=== PATIENT | male | born 1945 | race Caucasian/White ===

== ENCOUNTER 2019-01-13 00:19 | Inpatient (IN) | payer MEDICARE ==
[~2019-01-13] VITALS: Ht 152.4 cm; Wt 66.3 kg
[2019-01-13] MEDS ORDERED: FLU VAX QS 2019-20 (36MOS+)/PF 0.5 ML SYRINGE. VAX IM ONE (02:00)
[2019-01-13 02:10] VITALS: BP 125/74
[2019-01-13] MEDS ORDERED: METHYL SALICYLATE/MENTHOL TOPICAL OINTMENT 57GM TUBE. TP PRN (02:15)
[2019-01-13] MEDS ORDERED: MAG HYDROX/AL HYDROX/SIMETH 30 ML ORAL.SUSP PO PRN (02:15)
[2019-01-13] MEDS ORDERED: ACETAMINOPHEN 325 MG TABLET PO PRN ×2 (02:15→02:45)
[2019-01-13] MEDS ORDERED: MAGNESIUM HYDROXIDE 2,400 MG/30 ML ORAL.SUSP. PO PRN (02:15)
[2019-01-13] MEDS ORDERED: traZODone 50 MG TABLET. PO PRN (02:30)
[2019-01-13] MEDS ORDERED: OMEG100021 PO (02:35)
[2019-01-13] MEDS ORDERED: MELA3TAB56 PO (02:35)
[2019-01-13] MEDS ORDERED: MULT1TAB52 PO (02:35)
[2019-01-13] MEDS ORDERED: CALC1TAB75 PO (02:35)
[2019-01-13] MEDS ORDERED: DONE10TA7 PO (02:35)
[2019-01-13] MEDS ORDERED: TRAZ-120 PO ×2 (02:35)
[2019-01-13] MEDS ORDERED: CLON0.5T4 PO (02:35)
[2019-01-13] MEDS ORDERED: ACET325T21 PO (02:35)
[2019-01-13] MEDS ORDERED: Magnesium Gluconate PO (02:35)
[2019-01-13] MEDS ORDERED: FERR325T14 PO (02:35)
[2019-01-13] MEDS ORDERED: VITA1TAB3 PO (02:35)
[2019-01-13] MEDS ORDERED: SIMV20TA18 PO (02:35)
[2019-01-13] MEDS ORDERED: APIX5TAB3 PO (02:35)
[2019-01-13] MEDS ORDERED: NIAC500T PO (02:35)
[2019-01-13] MEDS ORDERED: ALBU2.5V8 INH (02:35)
[2019-01-13] MEDS ORDERED: ALBUTEROL SULFATE 2.5 MG/3 ML NEBU. INH PRN (02:45)
--- NOTE | 2019-01-13 05:22 | EKG ---
[address] [address] Test Date: 2019-01-13 Test Time: 04:52:09 Pat Name: JAMEY GASCA Department: Room: [address] [place] [address] Gender: M Prop Sawyer: : 1945 Requested By: HANNAH WARD Order Number: [id number] Reading MD: Ganesh Trujillo MD Measurements Intervals [place] Rate: 72 P: 54 IA: 248 QRS: 64 QRSD: 92 T: 48 QT: 426 QTc: 468 Interpretive Statements SINUS RHYTHM PROLONGED IA INTERVAL Electronically Signed On 01-26-2019 12:46:11 CDT by Ganesh Trujillo MD
[2019-01-13 06:23] VITALS: BP 129/75
[2019-01-13 07:04] LABS: BASO % 1 % (0-3); EOS # 0.2 x10^3/uL (0.0-0.7); EOS % 4 % (0-3); HEMATOCRIT 34.8 % (39.0-53.0); HEMOGLOBIN 11.8 g/dL (13.0-17.5); LYMPH # 1.2 x10^3/uL (1.0-4.8); LYMPH % 28 % (24-48); MEAN CORPUSCULAR HEMOGLOBIN 32 pg (25-35); MEAN CORPUSCULAR HGB CONC 34 g/dL (31-37); MEAN CORPUSCULAR VOLUME 95 fL (79-100); MONO # 0.4 x10^3/uL (0.0-1.1); MONO % 9 % (0-9); NEUT # 2.4 x10^3uL (1.8-7.7); NEUT % 58 % (31-73); PLATELET COUNT 268 x10^3/uL (140-400); RED BLOOD COUNT 3.68 x10^6/uL (4.30-5.70); RED CELL DISTRIBUTION WIDTH 13.7 % (11.5-14.5); WHITE BLOOD COUNT 4.1 x10^3/uL (4.0-11.0)
[2019-01-13 07:23] LABS: BILIRUBIN,URINE NEG (NEG); CLARITY,URINE CLEAR; COLOR,URINE YELLOW; GLUCOSE,URINE NEG (NEG); NITRITE,URINE NEG (NEG); RBC,URINE 0 /HPF (0-2); UROBILINOGEN,URINE 0.2 mg/dL (0.2 mg/dL)
[2019-01-13 07:24] LABS: BACTERIA,URINE 0 /HPF (0-FEW)
[2019-01-13 07:27] LABS: ALBUMIN 3.4 g/dL (3.4-5.0); CALCIUM 9.2 mg/dL (8.5-10.1); CREATININE 1.6 mg/dL (0.7-1.3); GFR 42.6; MAGNESIUM 2.1 mg/dL (1.8-2.4); POTASSIUM 4.1 mmol/L (3.5-5.1); TOTAL BILIRUBIN 0.6 mg/dL (0.2-1.0); TOTAL PROTEIN 6.8 g/dL (6.4-8.2)
[2019-01-13] MEDS: APIXABAN 5 MG TABLET. PO SCH ×2 (12:14→20:14)
[2019-01-13] MEDS: MULTIVITAMIN with MINERAL TABLET. PO SCH (12:14)
[2019-01-13] MEDS: VITAMIN B COMPLEX CAPSULE. PO SCH (12:14)
[2019-01-13] MEDS: CALCIUM CARB/VIT D3 500/200 TABLET PO SCH (12:14)
[2019-01-13] MEDS: clonazePAM 0.5 MG TABLET PO SCH ×2 (12:14→20:15)
[2019-01-13] MEDS: OMEGA-3 FATTY ACIDS/FISH OIL 1,000 MG CAPSULE. PO SCH (12:14)
[2019-01-13] MEDS: FERROUS SULFATE 325 MG TABLET. PO SCH (12:15)
[2019-01-13 16:32] LABS: THYROID STIM HORMONE (TSH) 4.133 uIU/mL (0.358-3.740)
[2019-01-13 16:55] VITALS: BP 160/77
[2019-01-13 18:08] LABS: THYROXINE 4.9 ug/dL (4.5-12.0)
[2019-01-13] MEDS: NIACIN ER 500 MG TABLET.ER PO SCH (20:14)
[2019-01-13] MEDS: SIMVASTATIN 20 MG TABLET PO SCH (20:14)
[2019-01-13] MEDS: MELATONIN 3 MG TABLET PO SCH (20:15)
[2019-01-13] MEDS: DONEPEZIL HCL 10 MG TABLET PO SCH (20:15)
--- NOTE | 2019-01-13 22:03 | PDOC ---
Exam Note: Jose Note: Please also refer to the separate dictated note~for this date of service dictated separately. Discussed the patient with Nursing staff reviewed the chart.~Reviewed interim history and current functioning. Reviewed vital signs,~Labs/ Radiology~and current medications noted below. Continue current treatment with the changes noted in the dictated addendum note Assessment: Vital Signs/I&O: Vital Signs Date Time Temp Pulse Resp B/P (MAP) Pulse Ox O2 Delivery O2 Flow Rate FiO2 01/13/19 16:55 97.8 80 16 160/77 (104) 97 I & O 01/12/19 01/12/19 01/13/19 15:00 23:00 07:00 Intake Total 0 ml Balance 0 ml Labs: Laboratory Tests Test 01/13/19 05:45 01/13/19 06:35 Urine Collection Type Unknown Urine Color Yellow Urine Clarity Clear Urine pH 7.5 Urine Specific [place] 1.020 Urine Protein Neg (NEG-TRACE) Urine Glucose (UA) Neg mg/dL (NEG) Urine Ketones (Stick) Neg mg/dL (NEG) Urine Blood Neg (NEG) Urine Nitrite Neg (NEG) Urine Bilirubin Neg (NEG) Urine Urobilinogen Dipstick 0.2 mg/dL (0.2 mg/dL) Urine Leukocyte Esterase Neg (NEG) Urine RBC 0 /HPF (0-2) Urine WBC 1-4 /HPF (0-4) Urine Squamous Epithelial Cells None /LPF Urine Bacteria 0 /HPF (0-FEW) Urine Mucus Slight /LPF White Blood Count 4.1 x10^3/uL (4.0-11.0) Red Blood Count 3.68 x10^6/uL (4.30-5.70) L Hemoglobin 11.8 g/dL (13.0-17.5) L Hematocrit 34.8 % (39.0-53.0) L Mean Corpuscular Volume 95 fL (79-100) Mean Corpuscular Hemoglobin 32 pg (25-35) Mean Corpuscular Hemoglobin Concent 34 g/dL (31-37) Red Cell Distribution Width 13.7 % (11.5-14.5) Platelet Count 268 x10^3/uL (140-400) Neutrophils (%) (Auto) 58 % (31-73) Lymphocytes (%) (Auto) 28 % (24-48) Monocytes (%) (Auto) 9 % (0-9) Eosinophils (%) (Auto) 4 % (0-3) H Basophils (%) (Auto) 1 % (0-3) Neutrophils # (Auto) 2.4 x10^3uL (1.8-7.7) Lymphocytes # (Auto) 1.2 x10^3/uL (1.0-4.8) Monocytes # (Auto) 0.4 x10^3/uL (0.0-1.1) Eosinophils # (Auto) 0.2 x10^3/uL (0.0-0.7) Basophils # (Auto) 0.0 x10^3/uL (0.0-0.2) Sodium Level 142 mmol/L (136-145) Potassium Level 4.1 mmol/L (3.5-5.1) Chloride Level 107 mmol/L (98-107) Carbon Dioxide Level 28 mmol/L (21-32) Anion Gap 7 (6-14) Blood Urea Nitrogen 29 mg/dL (8-26) H Creatinine 1.6 mg/dL (0.7-1.3) H Estimated GFR (Cockcroft-Gault) 42.6 BUN/Creatinine Ratio 18 (6-20) Glucose Level 85 mg/dL (70-99) Calcium Level 9.2 mg/dL (8.5-10.1) Magnesium Level 2.1 mg/dL (1.8-2.4) Iron Level 79 ug/dL (65-175) Total Iron Binding Capacity 253 ug/dL (250-450) Iron Saturation 31 % (15-34) Total Bilirubin 0.6 mg/dL (0.2-1.0) Aspartate Amino Transferase (AST) 49 U/L (15-37) H Alanine Aminotransferase (ALT) 29 U/L (16-63) Alkaline Phosphatase 57 U/L (46-116) Total Protein 6.8 g/dL (6.4-8.2) Albumin 3.4 g/dL (3.4-5.0) Albumin/Globulin Ratio 1.0 (1.0-1.7) Triglycerides Level 64 mg/dL (0-150) Cholesterol Level 166 mg/dL (0-200) LDL Cholesterol, Calculated 110 mg/dL (0-100) H VLDL Cholesterol, Calculated 12 mg/dL (0-40) Non-HDL Cholesterol Calculated 122 mg/dL (0-129) HDL Cholesterol 44 mg/dL (40-60) Cholesterol/HDL Ratio 3.0 25-Hydroxy Vitamin D Total 53.7 ng/mL (30-100) Thyroid Stimulating Hormone (TSH) 4.133 uIU/mL (0.358-3.740) Thyroxine (T4) 4.9 ug/dL (4.5-12.0) Total Triiodothyronine (TT3) 76 ng/dL (71-180) Treponema pallidum Antibody Nonreactive (Nonreactive) Current Medications: Meds: Current Medications Medications (Trade) Dose Ordered Sig/Joe Route PRN Reason Start Time Stop Time Status Last Admin Dose Admin Clonazepam (KlonoPIN) 0.5 mg BID PO 01/13/19 09:00 01/13/19 20:15 Donepezil HCl (Aricept) 10 mg HS PO 01/13/19 21:00 01/13/19 20:15 Melatonin 3 mg HS PO 01/13/19 21:00 01/13/19 20:15 Apixaban (Eliquis) 5 mg BID PO 01/13/19 09:00 01/13/19 20:15 Ferrous Sulfate (Feosol) 325 mg DAILY PO 01/13/19 09:00 01/13/19 12:15 Niacin (Slo-Niacin) 500 mg HS PO 01/13/19 21:00 01/13/19 20:15 Simvastatin (Zocor) 20 mg HS PO 01/13/19 21:00 01/13/19 20:15 Calcium/Vitamin D (Oscal D 500mg/ 200uts) 1 tab DAILYWBKFT PO 01/13/19 08:00 01/13/19 12:15 Multivitamins/ Calcium (Thera-M Plus) 1 tab DAILY PO 01/13/19 09:00 01/13/19 12:15 Fish Oil (Fish Oil) 1,000 mg DAILY PO 01/13/19 09:00 01/13/19 12:15 Vitamin B Complex 1 cap DAILY PO 01/13/19 09:00 01/13/19 12:15 Olanzapine (ZyPREXA ZYDIS) 2.5 mg PRN Q2HR PRN PO PSYCHOSIS 01/13/19 20:45 01/13/19 21:05 I have reviewed the current psychotropics carefully including drug interactions. Risk benefit ratio favors no change other than as noted in my dictated progress note. Diagnosis: Problems: (1) Anxiety disorder (2) Dementia, vascular, with delusions (3) Dementia, vascular, with depression (4) Dementia in Alzheimer's disease with depression (5) Dementia in Alzheimer's disease with delusions (6) Impulse control disorder HANNAH WARD MD Jan 13, 2019 22:03
[2019-01-13] MEDS: traZODone 50 MG TABLET. PO PRN (23:02)
[2019-01-13 23:06] LABS: HEMOGLOBIN A1C 5.7 % (4.8-5.6)
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
[2019-01-14 06:50] VITALS: BP 121/55
[2019-01-14] MEDS: VITAMIN B COMPLEX CAPSULE. PO SCH (08:52)
[2019-01-14] MEDS: MULTIVITAMIN with MINERAL TABLET. PO SCH (08:52)
[2019-01-14] MEDS: OMEGA-3 FATTY ACIDS/FISH OIL 1,000 MG CAPSULE. PO SCH (08:52)
[2019-01-14] MEDS: CALCIUM CARB/VIT D3 500/200 TABLET PO SCH (08:53)
[2019-01-14] MEDS: FERROUS SULFATE 325 MG TABLET. PO SCH (08:53)
[2019-01-14] MEDS: APIXABAN 5 MG TABLET. PO SCH ×2 (08:53→21:08)
[2019-01-14] MEDS: clonazePAM 0.5 MG TABLET PO SCH ×2 (08:55→21:08)
[2019-01-14] MEDS ORDERED: FLU VAX QS 2019-20 (36MOS+)/PF 0.5 ML SYRINGE. VAX IM ONE (09:00)
[2019-01-14] MEDS ORDERED: risperiDONE 0.5 MG TABLET. PO ONE ×2 (10:30→18:45)
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
[2019-01-14] MEDS: LORazepam 0.5 MG TABLET PO PRN (16:06)
[2019-01-14] MEDS: risperiDONE 0.5 MG TABLET. PO SCH (18:33)
[2019-01-14] MEDS: SIMVASTATIN 20 MG TABLET PO SCH (21:08)
[2019-01-14] MEDS: traZODone 50 MG TABLET. PO PRN (21:08)
[2019-01-14] MEDS: DONEPEZIL HCL 10 MG TABLET PO SCH (21:08)
[2019-01-14] MEDS: DIVALPROEX ER 500 MG TAB.ER.24H PO SCH (21:08)
[2019-01-14] MEDS: NIACIN ER 500 MG TABLET.ER PO SCH (21:08)
[2019-01-14] MEDS: MELATONIN 3 MG TABLET PO SCH (21:08)
--- NOTE | 2019-01-14 21:46 | PDOC ---
Exam Note: Jose Note: Please also refer to the separate dictated note~for this date of service dictated separately.~Patient seen individually. Discussed the patient with Nursing staff reviewed the chart.~Reviewed interim history and current functioning. Reviewed vital signs,~Labs/ Radiology~and current medications noted below. Continue current treatment with the changes noted in the dictated addendum note Assessment: Vital Signs/I&O: Vital Signs Date Time Temp Pulse Resp B/P (MAP) Pulse Ox O2 Delivery O2 Flow Rate FiO2 01/14/19 06:50 97.7 55 18 121/55 (77) 97 I & O 01/13/19 01/13/19 01/14/19 15:00 23:00 07:00 Intake Total 240 ml 320 ml Balance 240 ml 320 ml Current Medications: Meds: Current Medications Medications (Trade) Dose Ordered Sig/Joe Route PRN Reason Start Time Stop Time Status Last Admin Dose Admin Risperidone (RisperDAL) 0.5 mg 1X ONCE PO 01/14/19 10:30 01/14/19 10:31 DC 01/14/19 10:32 Lorazepam (Ativan) 0.5 mg PRN Q2HR PRN PO ANXIETY / AGITATION 01/14/19 10:30 01/14/19 16:06 Divalproex Sodium (Depakote Er) 500 mg QHS PO 01/14/19 21:00 01/14/19 21:08 Risperidone (RisperDAL) 0.5 mg 1X ONCE PO 01/14/19 18:45 01/14/19 18:46 DC 01/14/19 18:36 I have reviewed the current psychotropics carefully including drug interactions. Risk benefit ratio favors no change other than as noted in my dictated progress note. Diagnosis: Problems: (1) Anxiety disorder (2) Dementia, vascular, with delusions (3) Dementia, vascular, with depression (4) Dementia in Alzheimer's disease with depression (5) Dementia in Alzheimer's disease with delusions (6) Impulse control disorder HANNAH WARD MD Jan 14, 2019 21:46
[2019-01-15 06:32] VITALS: BP 122/68
[2019-01-15] MEDS: OMEGA-3 FATTY ACIDS/FISH OIL 1,000 MG CAPSULE. PO SCH (08:07)
[2019-01-15] MEDS: APIXABAN 5 MG TABLET. PO SCH ×2 (08:07→20:34)
[2019-01-15] MEDS: VITAMIN B COMPLEX CAPSULE. PO SCH (08:07)
[2019-01-15] MEDS: FERROUS SULFATE 325 MG TABLET. PO SCH (08:07)
[2019-01-15] MEDS: CALCIUM CARB/VIT D3 500/200 TABLET PO SCH (08:08)
[2019-01-15] MEDS: MULTIVITAMIN with MINERAL TABLET. PO SCH (08:08)
[2019-01-15] MEDS: clonazePAM 0.5 MG TABLET PO SCH ×2 (08:09→20:36)
[2019-01-15] MEDS ORDERED: FLU VAX QS 2019-20 (36MOS+)/PF 0.5 ML SYRINGE. VAX IM ONE (09:00)
[2019-01-15] MEDS: LORazepam 0.5 MG TABLET PO PRN ×2 (13:27→16:27)
[2019-01-15] MEDS: risperiDONE 0.5 MG TABLET. PO SCH (13:55)
[2019-01-15 15:42] VITALS: BP 143/79
[2019-01-15] MEDS: DIVALPROEX ER 500 MG TAB.ER.24H PO SCH (20:33)
[2019-01-15] MEDS: DONEPEZIL HCL 10 MG TABLET PO SCH (20:33)
[2019-01-15] MEDS: MELATONIN 3 MG TABLET PO SCH (20:33)
[2019-01-15] MEDS: NIACIN ER 500 MG TABLET.ER PO SCH (20:34)
[2019-01-15] MEDS: SIMVASTATIN 20 MG TABLET PO SCH (20:34)
[2019-01-15] MEDS: PRIMIDONE 50 MG TABLET PO SCH (20:36)
--- NOTE | 2019-01-15 21:53 | PDOC ---
Exam Note: Jose Note: Please also refer to the separate dictated note~for this date of service dictated separately.~Patient seen individually. Discussed the patient with Nursing staff reviewed the chart.~Reviewed interim history and current functioning. Reviewed vital signs,~Labs/ Radiology~and current medications noted below. Continue current treatment with the changes noted in the dictated addendum note Assessment: Vital Signs/I&O: Vital Signs Date Time Temp Pulse Resp B/P (MAP) Pulse Ox O2 Delivery O2 Flow Rate FiO2 01/15/19 15:42 98.4 98 20 143/79 (100) 97 I & O 01/14/19 01/14/19 01/15/19 15:00 23:00 07:00 Intake Total 840 ml 0 ml 240 ml Balance 840 ml 0 ml 240 ml Current Medications: Meds: Current Medications Medications (Trade) Dose Ordered Sig/Joe Route PRN Reason Start Time Stop Time Status Last Admin Dose Admin Primidone (Mysoline) 50 mg QHS PO 01/15/19 21:00 01/15/19 20:36 I have reviewed the current psychotropics carefully including drug interactions. Risk benefit ratio favors no change other than as noted in my dictated progress note. Diagnosis: Problems: (1) Anxiety disorder (2) Dementia, vascular, with delusions (3) Dementia, vascular, with depression (4) Dementia in Alzheimer's disease with depression (5) Dementia in Alzheimer's disease with delusions (6) Impulse control disorder HANNAH WARD MD Jan 15, 2019 21:53
[2019-01-16 05:09] VITALS: BP 122/73
[2019-01-16] MEDS: FERROUS SULFATE 325 MG TABLET. PO SCH (08:21)
[2019-01-16] MEDS: OMEGA-3 FATTY ACIDS/FISH OIL 1,000 MG CAPSULE. PO SCH (08:21)
[2019-01-16] MEDS: VITAMIN B COMPLEX CAPSULE. PO SCH (08:21)
[2019-01-16] MEDS: APIXABAN 5 MG TABLET. PO SCH ×2 (08:21→20:38)
[2019-01-16] MEDS: MULTIVITAMIN with MINERAL TABLET. PO SCH (08:21)
[2019-01-16] MEDS: CALCIUM CARB/VIT D3 500/200 TABLET PO SCH (08:21)
[2019-01-16] MEDS: clonazePAM 0.5 MG TABLET PO SCH ×2 (08:25→20:39)
[2019-01-16] MEDS ORDERED: FLU VAX QS 2019-20 (36MOS+)/PF 0.5 ML SYRINGE. VAX IM ONE (09:00)
[2019-01-16 16:27] VITALS: BP 138/73
[2019-01-16] MEDS: MELATONIN 3 MG TABLET PO SCH (20:38)
[2019-01-16] MEDS: risperiDONE 0.5 MG TABLET. PO SCH (20:38)
[2019-01-16] MEDS: SIMVASTATIN 20 MG TABLET PO SCH (20:38)
[2019-01-16] MEDS: PRIMIDONE 50 MG TABLET PO SCH (20:38)
[2019-01-16] MEDS: DIVALPROEX ER 500 MG TAB.ER.24H PO SCH (20:38)
[2019-01-16] MEDS: DONEPEZIL HCL 10 MG TABLET PO SCH (20:38)
[2019-01-16] MEDS: NIACIN ER 500 MG TABLET.ER PO SCH (20:39)
[2019-01-16] MEDS: PROPRANOLOL 10 MG TABLET. PO SCH (20:40)
--- NOTE | 2019-01-16 21:44 | PDOC ---
Exam Note: Jose Note: Please also refer to the separate dictated note~for this date of service dictated separately.~Patient seen individually. Discussed the patient with Nursing staff reviewed the chart.~Reviewed interim history and current functioning. Reviewed vital signs,~Labs/ Radiology~and current medications noted below. Continue current treatment with the changes noted in the dictated addendum note Assessment: Vital Signs/I&O: Vital Signs Date Time Temp Pulse Resp B/P (MAP) Pulse Ox O2 Delivery O2 Flow Rate FiO2 01/16/19 20:40 75 138/73 01/16/19 16:27 97.2 16 97 I & O 01/15/19 01/15/19 01/16/19 15:00 23:00 07:00 Intake Total 1080 ml 480 ml 420 ml Balance 1080 ml 480 ml 420 ml Current Medications: Meds: Current Medications Medications (Trade) Dose Ordered Sig/Joe Route PRN Reason Start Time Stop Time Status Last Admin Dose Admin Influenza Virus Vaccine Quadrival (Afluria Quad 2019-20 (3yr Up) Syringe) 0.5 ml ONCE ONCE VAX IM 01/16/19 09:00 01/16/19 09:01 DC 01/16/19 08:29 Propranolol HCl (Inderal) 20 mg BID PO 01/16/19 21:00 01/16/19 20:40 I have reviewed the current psychotropics carefully including drug interactions. Risk benefit ratio favors no change other than as noted in my dictated progress note. Diagnosis: Problems: (1) Anxiety disorder (2) Dementia, vascular, with delusions (3) Dementia, vascular, with depression (4) Dementia in Alzheimer's disease with depression (5) Dementia in Alzheimer's disease with delusions (6) Impulse control disorder HANNAH WARD MD Jan 16, 2019 21:44
[2019-01-16] MEDS: LORazepam 0.5 MG TABLET PO PRN ×2 (21:56→23:56)
[2019-01-16] MEDS: traZODone 50 MG TABLET. PO PRN (22:46)
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
--- NOTE | 2019-01-17 02:13 | PN ---
DATE: 01/14/2019 PSYCHIATRIC PROGRESS NOTE This late entry 01/14/2019 covers elements not covered in my initial note. SUBJECTIVE: I met with the patient in the evening at some length and previously talked to nursing staff several times earlier on account of his marked mood lability, psychosis, agitation. The patient slept 5 hours previous night. Per JONATHAN Rojas patient received Zyprexa at night and he was started on Risperdal given his significant psychotic symptoms. His visited at lunchtime and apparently after the visit, he was much worse, psychotic, labile. He then slept for a while until 03:30, pulled his mattress off the bed, was in the [place] to reduce stimuli, felt he was on an airplane, was constantly chiming and repeating left, right, left. He was actively hallucinating. He was making other statements "remember the code, remember the code." Ativan was given. CT and MRI head were reviewed by me and are noncontributory. He has had marked mood lability. By the time I met with him in the evening, he was lying on the floor of the [address] Hall[address], prostrate head down, chanting, intermittently hitting his feet into the floor and hands onto the floor, quite psychotic, agitated. Nursing staff are keeping a close watch on him. REVIEW OF SYSTEMS: No CV, , pulmonary, eye, ENT system symptoms on review. Reliability poor. MENTAL STATUS EXAM: Oriented to himself. Insight, judgment, recent memory is impaired. Language function intact. Attention span short. Mood and affect extremely labile, extremely psychotic. LABORATORY DATA: Reviewed. IMPRESSION: Psychotic disorder, unspecified; major neurocognitive disorder, Alzheimer, vascular with delusion, depression, bipolar disorder, mixed with psychotic features. Rest unchanged. Reviewed information of his past treatment at [facility]. When he was tapered off the Klonopin, placed on Cymbalta, then became quite manic, labile. PLAN: We will go ahead and gradually adjust the Risperdal and start Depakote ER 500 mg p.o. at bedtime. Check CBC, CMP, valproic acid level, ammonia level in 3 days. Risperdal is being initiated 0.5 mg at bedtime. We will increase to 1 mg a day fairly quickly depending on his response. Further changes as clinically indicated. MAN Byron WARD MD DR: Judi JOB#: [id number] / [id number]
[2019-01-17 05:16] VITALS: BP 123/69
[2019-01-17] MEDS: PROPRANOLOL 10 MG TABLET. PO SCH ×2 (08:06→22:05)
[2019-01-17] MEDS: CALCIUM CARB/VIT D3 500/200 TABLET PO SCH (08:06)
[2019-01-17] MEDS: FERROUS SULFATE 325 MG TABLET. PO SCH (08:06)
[2019-01-17] MEDS: MULTIVITAMIN with MINERAL TABLET. PO SCH (08:06)
[2019-01-17] MEDS: APIXABAN 5 MG TABLET. PO SCH ×2 (08:06→22:02)
[2019-01-17] MEDS: VITAMIN B COMPLEX CAPSULE. PO SCH (08:07)
[2019-01-17] MEDS: OMEGA-3 FATTY ACIDS/FISH OIL 1,000 MG CAPSULE. PO SCH (08:07)
[2019-01-17] MEDS: clonazePAM 0.5 MG TABLET PO SCH ×2 (08:09→22:04)
[2019-01-17 08:32] LABS: BASO % 1 % (0-3); EOS # 0.2 x10^3/uL (0.0-0.7); EOS % 5 % (0-3); HEMATOCRIT 36.4 % (39.0-53.0); HEMOGLOBIN 12.3 g/dL (13.0-17.5); LYMPH % 27 % (24-48); MEAN CORPUSCULAR HEMOGLOBIN 32 pg (25-35); MEAN CORPUSCULAR HGB CONC 34 g/dL (31-37); MEAN CORPUSCULAR VOLUME 95 fL (79-100); MONO # 0.4 x10^3/uL (0.0-1.1); MONO % 12 % (0-9); NEUT % 55 % (31-73); PLATELET COUNT 302 x10^3/uL (140-400); RED BLOOD COUNT 3.82 x10^6/uL (4.30-5.70); RED CELL DISTRIBUTION WIDTH 13.8 % (11.5-14.5); WHITE BLOOD COUNT 3.7 x10^3/uL (4.0-11.0)
[2019-01-17 08:41] LABS: ALBUMIN 3.5 g/dL (3.4-5.0); ALK PHOS 65 U/L (46-116); ALT (SGPT) 29 U/L (16-63); ANION GAP 8 (6-14); AST (SGOT) 34 U/L (15-37); BLOOD UREA NITROGEN 23 mg/dL (8-26); BUN/CREATININE RATIO 14 (6-20); CALCIUM 9.1 mg/dL (8.5-10.1); CARBON DIOXIDE 29 mmol/L (21-32); CHLORIDE 104 mmol/L (98-107); CREATININE 1.6 mg/dL (0.7-1.3); GFR 42.6; GLUCOSE 102 mg/dL (70-99); POTASSIUM 4.4 mmol/L (3.5-5.1); SODIUM 141 mmol/L (136-145); TOTAL BILIRUBIN 0.3 mg/dL (0.2-1.0); TOTAL PROTEIN 7.1 g/dL (6.4-8.2)
[2019-01-17 08:46] LABS: VAL ACID 54 mcg/mL (50-100)
[2019-01-17 15:32] VITALS: BP 121/68
[2019-01-17] MEDS: MELATONIN 3 MG TABLET PO SCH (22:02)
[2019-01-17] MEDS: DIVALPROEX ER 500 MG TAB.ER.24H PO SCH (22:02)
[2019-01-17] MEDS: SIMVASTATIN 20 MG TABLET PO SCH (22:02)
[2019-01-17] MEDS: risperiDONE 0.5 MG TABLET. PO SCH (22:02)
[2019-01-17] MEDS: NIACIN ER 500 MG TABLET.ER PO SCH (22:03)
[2019-01-17] MEDS: DONEPEZIL HCL 10 MG TABLET PO SCH (22:05)
[2019-01-17] MEDS: PRIMIDONE 50 MG TABLET PO SCH (22:07)
--- NOTE | 2019-01-17 22:17 | PDOC ---
Exam Note: Jose Note: Please also refer to the separate dictated note~for this date of service dictated separately.~Patient seen individually. Discussed the patient with Nursing staff reviewed the chart.~Reviewed interim history and current functioning. Reviewed vital signs,~Labs/ Radiology~and current medications noted below. Continue current treatment with the changes noted in the dictated addendum note Assessment: Vital Signs/I&O: Vital Signs Date Time Temp Pulse Resp B/P (MAP) Pulse Ox O2 Delivery O2 Flow Rate FiO2 01/17/19 22:05 66 127/70 01/17/19 15:32 97.6 16 98 I & O 01/16/19 01/16/19 01/17/19 15:00 23:00 07:00 Intake Total 960 ml 480 ml 360 ml Balance 960 ml 480 ml 360 ml Labs: Laboratory Tests Test 01/17/19 07:36 White Blood Count 3.7 x10^3/uL (4.0-11.0) L Red Blood Count 3.82 x10^6/uL (4.30-5.70) L Hemoglobin 12.3 g/dL (13.0-17.5) L Hematocrit 36.4 % (39.0-53.0) L Mean Corpuscular Volume 95 fL (79-100) Mean Corpuscular Hemoglobin 32 pg (25-35) Mean Corpuscular Hemoglobin Concent 34 g/dL (31-37) Red Cell Distribution Width 13.8 % (11.5-14.5) Platelet Count 302 x10^3/uL (140-400) Neutrophils (%) (Auto) 55 % (31-73) Lymphocytes (%) (Auto) 27 % (24-48) Monocytes (%) (Auto) 12 % (0-9) H Eosinophils (%) (Auto) 5 % (0-3) H Basophils (%) (Auto) 1 % (0-3) Neutrophils # (Auto) 2.0 x10^3uL (1.8-7.7) Lymphocytes # (Auto) 1.0 x10^3/uL (1.0-4.8) Monocytes # (Auto) 0.4 x10^3/uL (0.0-1.1) Eosinophils # (Auto) 0.2 x10^3/uL (0.0-0.7) Basophils # (Auto) 0.0 x10^3/uL (0.0-0.2) Sodium Level 141 mmol/L (136-145) Potassium Level 4.4 mmol/L (3.5-5.1) Chloride Level 104 mmol/L (98-107) Carbon Dioxide Level 29 mmol/L (21-32) Anion Gap 8 (6-14) Blood Urea Nitrogen 23 mg/dL (8-26) Creatinine 1.6 mg/dL (0.7-1.3) H Estimated GFR (Cockcroft-Gault) 42.6 BUN/Creatinine Ratio 14 (6-20) Glucose Level 102 mg/dL (70-99) H Calcium Level 9.1 mg/dL (8.5-10.1) Total Bilirubin 0.3 mg/dL (0.2-1.0) Aspartate Amino Transferase (AST) 34 U/L (15-37) Alanine Aminotransferase (ALT) 29 U/L (16-63) Alkaline Phosphatase 65 U/L (46-116) Ammonia < 10 mcmol/L (11-34) L Total Protein 7.1 g/dL (6.4-8.2) Albumin 3.5 g/dL (3.4-5.0) Albumin/Globulin Ratio 1.0 (1.0-1.7) Valproic Acid Level 54 mcg/mL (50-100) Valproic Acid Last Dose Date 01/16/19 Valproic Acid Last Dose Time 2100 Current Medications: I have reviewed the current psychotropics carefully including drug interactions. Risk benefit ratio favors no change other than as noted in my dictated progress note. Diagnosis: Problems: (1) Anxiety disorder (2) Dementia, vascular, with delusions (3) Dementia, vascular, with depression (4) Dementia in Alzheimer's disease with depression (5) Dementia in Alzheimer's disease with delusions (6) Impulse control disorder HANNAH WARD MD Jan 17, 2019 22:17
[2019-01-18 05:25] VITALS: BP 131/74
[2019-01-18] MEDS: CALCIUM CARB/VIT D3 500/200 TABLET PO SCH (09:15)
[2019-01-18] MEDS: OMEGA-3 FATTY ACIDS/FISH OIL 1,000 MG CAPSULE. PO SCH (09:16)
[2019-01-18] MEDS: APIXABAN 5 MG TABLET. PO SCH ×2 (09:16→20:12)
[2019-01-18] MEDS: FERROUS SULFATE 325 MG TABLET. PO SCH (09:16)
[2019-01-18] MEDS: VITAMIN B COMPLEX CAPSULE. PO SCH (09:16)
[2019-01-18] MEDS: MULTIVITAMIN with MINERAL TABLET. PO SCH (09:17)
[2019-01-18] MEDS: PROPRANOLOL 10 MG TABLET. PO SCH ×2 (09:17→20:11)
[2019-01-18] MEDS: clonazePAM 0.5 MG TABLET PO SCH ×2 (09:18→20:12)
[2019-01-18 16:06] VITALS: BP 150/76
[2019-01-18] MEDS: risperiDONE 0.5 MG TABLET. PO SCH (20:10)
[2019-01-18] MEDS: MELATONIN 3 MG TABLET PO SCH (20:11)
[2019-01-18] MEDS: DIVALPROEX ER 500 MG TAB.ER.24H PO SCH (20:11)
[2019-01-18] MEDS: NIACIN ER 500 MG TABLET.ER PO SCH (20:11)
[2019-01-18] MEDS: DONEPEZIL HCL 10 MG TABLET PO SCH (20:12)
[2019-01-18] MEDS: PRIMIDONE 50 MG TABLET PO SCH (20:12)
[2019-01-18] MEDS: SIMVASTATIN 20 MG TABLET PO SCH (20:12)
[2019-01-18] MEDS: traZODone 50 MG TABLET. PO SCH (20:17)
--- NOTE | 2019-01-18 21:31 | PDOC ---
Exam Note: Jose Note: Please also refer to the separate dictated note~for this date of service dictated separately.~Patient seen individually. Discussed the patient with Nursing staff reviewed the chart.~Reviewed interim history and current functioning. Reviewed vital signs,~Labs/ Radiology~and current medications noted below. Continue current treatment with the changes noted in the dictated addendum note Assessment: Vital Signs/I&O: Vital Signs Date Time Temp Pulse Resp B/P (MAP) Pulse Ox O2 Delivery O2 Flow Rate FiO2 01/18/19 20:11 65 150/76 01/18/19 16:06 97.3 20 97 01/18/19 05:25 Room Air I & O 01/17/19 01/17/19 01/18/19 15:00 23:00 07:00 Intake Total 600 ml 240 ml 240 ml Balance 600 ml 240 ml 240 ml Current Medications: Meds: Current Medications Medications (Trade) Dose Ordered Sig/Joe Route PRN Reason Start Time Stop Time Status Last Admin Dose Admin Trazodone HCl (Desyrel) 50 mg QHS PO 01/18/19 21:00 01/18/19 20:17 I have reviewed the current psychotropics carefully including drug interactions. Risk benefit ratio favors no change other than as noted in my dictated progress note. Diagnosis: Problems: (1) Anxiety disorder (2) Dementia, vascular, with delusions (3) Dementia, vascular, with depression (4) Dementia in Alzheimer's disease with depression (5) Dementia in Alzheimer's disease with delusions (6) Impulse control disorder HANNAH WARD MD Jan 18, 2019 21:31
--- NOTE | 2019-01-19 00:23 | PN ---
DATE: 01/16/2019 PSYCHIATRIC PROGRESS NOTE This late entry 01/16/2019 covers elements not covered in my initial note. SUBJECTIVE: I met with the patient evening of 01/16/2019. Per JONATHAN Cutler, the patient slept 4 hours previous night. Appetite has been fair. He has been attending groups, attended [email or web address], quite a change for him from the day before when he was extremely psychotic, disorganized, agitated, labile and previously the day before, tried to suffocate himself. He has been asking questions and painting. He was unaware of the year, but remembered the date, thought he was in [facility], takes his medications whole. REVIEW OF SYSTEMS: No CV, , pulmonary, eye system symptoms on review. MENTAL STATUS EXAM: The patient is oriented as above. Speech has some latency, coherent. Abstraction fair, computation impaired, language function intact, attention span short. Mood and affect less labile. He is still psychotic, but much improved. LABORATORY DATA: Reviewed. IMPRESSION: Probable bipolar disorder, mixed with psychotic features; psychotic disorder, unspecified; major neurocognitive disorder, early multifactorial with delusion. Rest unchanged. PLAN: Continue current psychotropics. Depakote is being adjusted. He is on Klonopin, Aricept, trazodone, Risperdal 0.5 mg at bedtime, Ativan p.r.n. MAN Byron WRAD MD DR: CARRIE/dariana JOB#: [id number] / [id number]
[2019-01-19 05:59] VITALS: BP 155/78
[2019-01-19] MEDS: MULTIVITAMIN with MINERAL TABLET. PO SCH (07:47)
[2019-01-19] MEDS: clonazePAM 0.5 MG TABLET PO SCH ×2 (07:47→19:45)
[2019-01-19] MEDS: APIXABAN 5 MG TABLET. PO SCH ×2 (07:47→19:45)
[2019-01-19] MEDS: FERROUS SULFATE 325 MG TABLET. PO SCH (07:47)
[2019-01-19] MEDS: OMEGA-3 FATTY ACIDS/FISH OIL 1,000 MG CAPSULE. PO SCH (07:47)
[2019-01-19] MEDS: CALCIUM CARB/VIT D3 500/200 TABLET PO SCH (07:47)
[2019-01-19] MEDS: VITAMIN B COMPLEX CAPSULE. PO SCH (07:47)
[2019-01-19] MEDS: PROPRANOLOL 10 MG TABLET. PO SCH ×2 (07:48→19:46)
--- NOTE | 2019-01-19 12:24 | PN ---
DATE: 01/17/2019 PSYCHIATRIC PROGRESS NOTE This late entry, 01/17/2019, covers elements not covered in my initial note. SUBJECTIVE: I met with the patient in the evening. The patient slept 2-1/4 hours previous night. Previous night, he was combative with staff, put himself on the floor, received p.r.n. Ativan, Zyprexa and trazodone. At 2:00 a.m., he had to be placed in the [place] Hall[place] to lower stimulation and then went back to bed. During the day on 01/17/2019, he is doing better, oriented to himself and situation. REVIEW OF SYSTEMS: Still complains of something wrong with his head, no CV, , pulmonary, eye, ENT system symptoms on review. MENTAL STATUS EXAM: The patient is oriented to himself and situation. Speech coherent, a little pressured at times. Abstraction fair, computation impaired, language function intact, attention span short. Mood and affect still remains labile. LABORATORY DATA: Reviewed. IMPRESSION: Unchanged from initial note. PLAN: Increase trazodone to 50 mg at bedtime schedule, may repeat x 1. Continue Aricept, Klonopin along with Zyprexa p.r.n., Risperdal and Ativan p.r.n., Depakote ER 500 mg at bedtime. Check labs level. Adjust as clinically indicated to reach therapeutic level. HANNAH WARD MD DR: CARRIE/dariana JOB#: [id number] / [id number]
[2019-01-19 16:01] VITALS: BP 121/50
[2019-01-19] MEDS: DONEPEZIL HCL 10 MG TABLET PO SCH (19:45)
[2019-01-19] MEDS: NIACIN ER 500 MG TABLET.ER PO SCH (19:45)
[2019-01-19] MEDS: MELATONIN 3 MG TABLET PO SCH (19:45)
[2019-01-19] MEDS: traZODone 50 MG TABLET. PO SCH (19:45)
[2019-01-19] MEDS: PRIMIDONE 50 MG TABLET PO SCH (19:45)
[2019-01-19] MEDS: DIVALPROEX ER 500 MG TAB.ER.24H PO SCH (19:45)
[2019-01-19] MEDS: SIMVASTATIN 20 MG TABLET PO SCH (19:45)
[2019-01-19] MEDS: risperiDONE 0.5 MG TABLET. PO SCH (19:50)
--- NOTE | 2019-01-19 21:41 | PDOC ---
Exam Note: Jose Note: Please also refer to the separate dictated note~for this date of service dictated separately.~Patient seen individually. Discussed the patient with Nursing staff reviewed the chart.~Reviewed interim history and current functioning. Reviewed vital signs,~Labs/ Radiology~and current medications noted below. Continue current treatment with the changes noted in the dictated addendum note Assessment: Vital Signs/I&O: Vital Signs Date Time Temp Pulse Resp B/P (MAP) Pulse Ox O2 Delivery O2 Flow Rate FiO2 01/19/19 19:46 69 121/50 01/19/19 16:01 97.4 20 98 01/19/19 05:59 Room Air I & O 01/18/19 01/18/19 01/19/19 15:00 23:00 07:00 Intake Total 960 ml 360 ml Balance 960 ml 360 ml Current Medications: Meds: Current Medications Medications (Trade) Dose Ordered Sig/Joe Route PRN Reason Start Time Stop Time Status Last Admin Dose Admin Risperidone (RisperDAL) 0.75 mg QHS PO 01/19/19 21:00 01/19/19 19:50 I have reviewed the current psychotropics carefully including drug interactions. Risk benefit ratio favors no change other than as noted in my dictated progress note. Diagnosis: Problems: (1) Anxiety disorder (2) Dementia, vascular, with delusions (3) Dementia, vascular, with depression (4) Dementia in Alzheimer's disease with depression (5) Dementia in Alzheimer's disease with delusions (6) Impulse control disorder HANNAH WARD MD Jan 19, 2019 21:41
--- NOTE | 2019-01-20 00:34 | PN ---
DATE: 01/18/2019 PSYCHIATRIC PROGRESS NOTE This late entry, 01/18/2019, covers elements not covered in my initial note. SUBJECTIVE: I met with the patient in the evening. The patient slept 6 hours previous night. He has been confused, somewhat calmer. He had valproic acid level therapeutic at 54. AST, ALT unremarkable. REVIEW OF SYSTEMS: No CV, , pulmonary, eye, ENT system symptoms on review. Reliability varies. MENTAL STATUS EXAM: Oriented to himself and situation. Speech is coherent, a little pressured at times. Abstraction fair, computation impaired, language function intact, attention span short. Mood and affect still somewhat labile. LABORATORY DATA: Reviewed. IMPRESSION: Bipolar disorder, mixed with psychotic features; major neurocognitive disorder, multifactorial with delusion, depression, behavioral disturbance, psychotic disorder, unspecified. Rest unchanged. PLAN: Continue Depakote at current dosage, level therapeutic, increase Risperdal to 0.75 mg at bedtime. Rest unchanged for now. MAN Byron WARD MD DR: CARRIE/dariana JOB#: [id number] / [id number]
[2019-01-20 05:53] VITALS: BP 129/74
[2019-01-20] MEDS: MULTIVITAMIN with MINERAL TABLET. PO SCH (08:15)
[2019-01-20] MEDS: CALCIUM CARB/VIT D3 500/200 TABLET PO SCH (08:15)
[2019-01-20] MEDS: FERROUS SULFATE 325 MG TABLET. PO SCH (08:15)
[2019-01-20] MEDS: OMEGA-3 FATTY ACIDS/FISH OIL 1,000 MG CAPSULE. PO SCH (08:15)
[2019-01-20] MEDS: clonazePAM 0.5 MG TABLET PO SCH ×2 (08:15→19:50)
[2019-01-20] MEDS: APIXABAN 5 MG TABLET. PO SCH ×2 (08:15→19:41)
[2019-01-20] MEDS: VITAMIN B COMPLEX CAPSULE. PO SCH (08:16)
[2019-01-20] MEDS: PROPRANOLOL 10 MG TABLET. PO SCH ×2 (08:16→19:44)
[2019-01-20 16:30] VITALS: BP 111/71
[2019-01-20] MEDS: NIACIN ER 500 MG TABLET.ER PO SCH (19:40)
[2019-01-20] MEDS: MELATONIN 3 MG TABLET PO SCH (19:41)
[2019-01-20] MEDS: PRIMIDONE 50 MG TABLET PO SCH (19:42)
[2019-01-20] MEDS: traZODone 50 MG TABLET. PO SCH (19:42)
[2019-01-20] MEDS: risperiDONE 0.5 MG TABLET. PO SCH (19:43)
[2019-01-20] MEDS: SIMVASTATIN 20 MG TABLET PO SCH (19:44)
[2019-01-20] MEDS: DONEPEZIL HCL 10 MG TABLET PO SCH (19:50)
[2019-01-20] MEDS: DIVALPROEX ER 500 MG TAB.ER.24H PO SCH (19:50)
[2019-01-20] MEDS: BENZTROPINE MESYLATE 0.5 MG TABLET PO SCH (19:51)
--- NOTE | 2019-01-20 22:14 | PDOC ---
Exam Note: Jose Note: Please also refer to the separate dictated note~for this date of service dictated separately.~Patient seen individually. Discussed the patient with Nursing staff reviewed the chart.~Reviewed interim history and current functioning. Reviewed vital signs,~Labs/ Radiology~and current medications noted below. Continue current treatment with the changes noted in the dictated addendum note Assessment: Vital Signs/I&O: Vital Signs Date Time Temp Pulse Resp B/P (MAP) Pulse Ox O2 Delivery O2 Flow Rate FiO2 01/20/19 19:44 76 111/71 01/20/19 16:30 98.0 20 96 01/19/19 05:59 Room Air I & O 01/19/19 01/19/19 01/20/19 15:00 23:00 07:00 Intake Total 840 ml 240 ml 120 ml Balance 840 ml 240 ml 120 ml Current Medications: Meds: Current Medications Medications (Trade) Dose Ordered Sig/Joe Route PRN Reason Start Time Stop Time Status Last Admin Dose Admin Benztropine Mesylate (Cogentin) 0.5 mg HS PO 01/20/19 21:00 01/20/19 19:51 I have reviewed the current psychotropics carefully including drug interactions. Risk benefit ratio favors no change other than as noted in my dictated progress note. Diagnosis: Problems: (1) Anxiety disorder (2) Dementia, vascular, with delusions (3) Dementia, vascular, with depression (4) Dementia in Alzheimer's disease with depression (5) Dementia in Alzheimer's disease with delusions (6) Impulse control disorder HANNAH WARD MD Jan 20, 2019 22:14
[2019-01-21 05:52] VITALS: BP 134/76
--- NOTE | 2019-01-21 06:44 | PN ---
DATE: 01/19/2019 PSYCHIATRIC PROGRESS NOTE This late entry 01/19/2019 covers elements not covered in my initial note. SUBJECTIVE: I met with the patient evening of 01/19/2019. The patient slept 6-3/4 hours previous night per JONATHAN Cutler. He has had some drooling in the morning but later in the day no drooling was noted. He is compliant with his medications, less paranoid. No behaviors noted during the day. REVIEW OF SYSTEMS: Positive for some anxiety and some racing thoughts, but he feels it is better. No CV, , pulmonary, eye system symptoms on review. MENTAL STATUS EXAM: Oriented to himself, situation. Speech is coherent, abstraction fair, computation impaired, language function intact, attention span short. Mood and affect remain somewhat anxious but better than before. LABORATORY DATA: Reviewed. IMPRESSION: Unchanged from initial note. PLAN: No change from initial note. Depakote is being adjusted. Valproic acid level is therapeutic at 54. Risperdal was increased to 0.75 mg at bedtime. Maintain the rest unchanged. MAN Byron WARD MD DR: CARRIE/dariana JOB#: [id number] / [id number]
[2019-01-21] MEDS: APIXABAN 5 MG TABLET. PO SCH ×2 (08:47→20:27)
[2019-01-21] MEDS: FERROUS SULFATE 325 MG TABLET. PO SCH (08:47)
[2019-01-21] MEDS: OMEGA-3 FATTY ACIDS/FISH OIL 1,000 MG CAPSULE. PO SCH (08:47)
[2019-01-21] MEDS: VITAMIN B COMPLEX CAPSULE. PO SCH (08:47)
[2019-01-21] MEDS: CALCIUM CARB/VIT D3 500/200 TABLET PO SCH (08:47)
[2019-01-21] MEDS: PROPRANOLOL 10 MG TABLET. PO SCH ×2 (08:49→20:28)
[2019-01-21] MEDS: MULTIVITAMIN with MINERAL TABLET. PO SCH (08:49)
[2019-01-21] MEDS: clonazePAM 0.5 MG TABLET PO SCH ×2 (08:51→20:28)
[2019-01-21 16:05] VITALS: BP 133/80
[2019-01-21] MEDS: SIMVASTATIN 20 MG TABLET PO SCH (20:27)
[2019-01-21] MEDS: MELATONIN 3 MG TABLET PO SCH (20:27)
[2019-01-21] MEDS: BENZTROPINE MESYLATE 0.5 MG TABLET PO SCH (20:28)
[2019-01-21] MEDS: PRIMIDONE 50 MG TABLET PO SCH (20:28)
[2019-01-21] MEDS: DONEPEZIL HCL 10 MG TABLET PO SCH (20:28)
[2019-01-21] MEDS: risperiDONE 1 MG TABLET. PO SCH (20:28)
[2019-01-21] MEDS: traZODone 50 MG TABLET. PO SCH (20:29)
[2019-01-21] MEDS: DIVALPROEX ER 500 MG TAB.ER.24H PO SCH (20:29)
[2019-01-21] MEDS: NIACIN ER 500 MG TABLET.ER PO SCH (20:29)
--- NOTE | 2019-01-21 21:28 | PDOC ---
Exam Note: Jose Note: Please also refer to the separate dictated note~for this date of service dictated separately.~Patient seen individually. Discussed the patient with Nursing staff reviewed the chart.~Reviewed interim history and current functioning. Reviewed vital signs,~Labs/ Radiology~and current medications noted below. Continue current treatment with the changes noted in the dictated addendum note Assessment: Vital Signs/I&O: Vital Signs Date Time Temp Pulse Resp B/P (MAP) Pulse Ox O2 Delivery O2 Flow Rate FiO2 01/21/19 20:28 67 145/83 01/21/19 16:05 98.3 16 97 01/19/19 05:59 Room Air I & O 01/20/19 01/20/19 01/21/19 14:59 22:59 06:59 Intake Total 600 ml 240 ml 120 ml Balance 600 ml 240 ml 120 ml Current Medications: Meds: Current Medications Medications (Trade) Dose Ordered Sig/Joe Route PRN Reason Start Time Stop Time Status Last Admin Dose Admin Risperidone (RisperDAL) 1 mg QHS PO 01/21/19 21:00 01/21/19 20:28 I have reviewed the current psychotropics carefully including drug interactions. Risk benefit ratio favors no change other than as noted in my dictated progress note. Diagnosis: Problems: (1) Anxiety disorder (2) Dementia, vascular, with delusions (3) Dementia, vascular, with depression (4) Dementia in Alzheimer's disease with depression (5) Dementia in Alzheimer's disease with delusions (6) Impulse control disorder HANNAH WARD MD Jan 21, 2019 21:28
[2019-01-22 05:42] VITALS: BP 146/76
--- NOTE | 2019-01-22 06:23 | PN ---
DATE: 01/20/2019 PSYCHIATRIC PROGRESS NOTE This late entry, 01/20, covers elements not covered in my initial note. SUBJECTIVE: I met with the patient evening of 01/20. Overall, per nursing report by JONATHAN Rubalcava, the patient has been drooling, at times was crawling on the floor, oriented to his name and birthday. Thought it was [birth year]18[birth year]2019 and that he was at [facility] in [place]. He does have some extrapyramidal symptoms and we will start Cogentin 0.5 mg half a tablet at bedtime. REVIEW OF SYSTEMS: No CV, , pulmonary, eye system symptoms on review. MENTAL STATUS EXAM: Oriented to himself and situation. Speech is coherent, abstraction fair, computation impaired, language function intact, attention span short. Mood and affect remain somewhat anxious, labile, but improved. LABORATORY DATA: Reviewed. IMPRESSION: Bipolar disorder, mixed with psychotic features; major neurocognitive disorder, early multifactorial with delusion, depression. Rest unchanged. PLAN: No change from initial note. Start the Cogentin as noted. Valproic acid level therapeutic at 54. Risperdal may need to be increased if psychotic symptoms resurface. MAN Byron WARD MD DR: CARRIE/dariana JOB#: [id number] / [id number]
[2019-01-22 06:37] LABS: BASO % 1 % (0-3); EOS # 0.2 x10^3/uL (0.0-0.7); EOS % 2 % (0-3); HEMATOCRIT 36.3 % (39.0-53.0); HEMOGLOBIN 12.2 g/dL (13.0-17.5); LYMPH # 1.4 x10^3/uL (1.0-4.8); LYMPH % 23 % (24-48); MEAN CORPUSCULAR HEMOGLOBIN 32 pg (25-35); MEAN CORPUSCULAR HGB CONC 34 g/dL (31-37); MEAN CORPUSCULAR VOLUME 95 fL (79-100); MONO # 0.8 x10^3/uL (0.0-1.1); MONO % 13 % (0-9); NEUT # 3.9 x10^3uL (1.8-7.7); NEUT % 61 % (31-73); PLATELET COUNT 272 x10^3/uL (140-400); RED BLOOD COUNT 3.81 x10^6/uL (4.30-5.70); RED CELL DISTRIBUTION WIDTH 13.8 % (11.5-14.5); WHITE BLOOD COUNT 6.4 x10^3/uL (4.0-11.0)
[2019-01-22 06:52] LABS: ALBUMIN 3.1 g/dL (3.4-5.0); ALBUMIN/GLOBULIN RATIO 0.9 (1.0-1.7); CALCIUM 8.7 mg/dL (8.5-10.1); CREATININE 1.5 mg/dL (0.7-1.3); GFR 45.9; POTASSIUM 4.1 mmol/L (3.5-5.1); TOTAL BILIRUBIN 0.3 mg/dL (0.2-1.0); TOTAL PROTEIN 6.5 g/dL (6.4-8.2)
[2019-01-22] MEDS: MULTIVITAMIN with MINERAL TABLET. PO SCH (07:48)
[2019-01-22] MEDS: VITAMIN B COMPLEX CAPSULE. PO SCH (07:48)
[2019-01-22] MEDS: FERROUS SULFATE 325 MG TABLET. PO SCH (07:48)
[2019-01-22] MEDS: OMEGA-3 FATTY ACIDS/FISH OIL 1,000 MG CAPSULE. PO SCH (07:48)
[2019-01-22] MEDS: CALCIUM CARB/VIT D3 500/200 TABLET PO SCH (07:48)
[2019-01-22] MEDS: APIXABAN 5 MG TABLET. PO SCH ×2 (07:49→20:24)
[2019-01-22] MEDS: PROPRANOLOL 10 MG TABLET. PO SCH ×2 (07:49→20:25)
[2019-01-22] MEDS: clonazePAM 0.5 MG TABLET PO SCH ×2 (07:51→20:25)
[2019-01-22 16:56] VITALS: BP 157/74
[2019-01-22] MEDS: DIVALPROEX ER 500 MG TAB.ER.24H PO SCH (20:24)
[2019-01-22] MEDS: PRIMIDONE 50 MG TABLET PO SCH (20:24)
[2019-01-22] MEDS: MELATONIN 3 MG TABLET PO SCH (20:24)
[2019-01-22] MEDS: SIMVASTATIN 20 MG TABLET PO SCH (20:24)
[2019-01-22] MEDS: BENZTROPINE MESYLATE 0.5 MG TABLET PO SCH (20:24)
[2019-01-22] MEDS: NIACIN ER 500 MG TABLET.ER PO SCH (20:24)
[2019-01-22] MEDS: risperiDONE 1 MG TABLET. PO SCH (20:24)
[2019-01-22] MEDS: DONEPEZIL HCL 10 MG TABLET PO SCH (20:25)
[2019-01-22] MEDS: traZODone 50 MG TABLET. PO SCH (20:25)
--- NOTE | 2019-01-22 21:47 | PDOC ---
Exam Note: Jose Note: Please also refer to the separate dictated note~for this date of service dictated separately.~Patient seen individually. Discussed the patient with Nursing staff reviewed the chart.~Reviewed interim history and current functioning. Reviewed vital signs,~Labs/ Radiology~and current medications noted below. Continue current treatment with the changes noted in the dictated addendum note Assessment: Vital Signs/I&O: Vital Signs Date Time Temp Pulse Resp B/P (MAP) Pulse Ox O2 Delivery O2 Flow Rate FiO2 01/22/19 20:25 62 139/77 01/22/19 16:56 97.9 18 98 01/19/19 05:59 Room Air I & O 01/21/19 01/21/19 01/22/19 15:00 23:00 07:00 Intake Total 960 ml 240 ml 120 ml Balance 960 ml 240 ml 120 ml Labs: Laboratory Tests Test 01/22/19 06:20 White Blood Count 6.4 x10^3/uL (4.0-11.0) Red Blood Count 3.81 x10^6/uL (4.30-5.70) L Hemoglobin 12.2 g/dL (13.0-17.5) L Hematocrit 36.3 % (39.0-53.0) L Mean Corpuscular Volume 95 fL (79-100) Mean Corpuscular Hemoglobin 32 pg (25-35) Mean Corpuscular Hemoglobin Concent 34 g/dL (31-37) Red Cell Distribution Width 13.8 % (11.5-14.5) Platelet Count 272 x10^3/uL (140-400) Neutrophils (%) (Auto) 61 % (31-73) Lymphocytes (%) (Auto) 23 % (24-48) L Monocytes (%) (Auto) 13 % (0-9) H Eosinophils (%) (Auto) 2 % (0-3) Basophils (%) (Auto) 1 % (0-3) Neutrophils # (Auto) 3.9 x10^3uL (1.8-7.7) Lymphocytes # (Auto) 1.4 x10^3/uL (1.0-4.8) Monocytes # (Auto) 0.8 x10^3/uL (0.0-1.1) Eosinophils # (Auto) 0.2 x10^3/uL (0.0-0.7) Basophils # (Auto) 0.0 x10^3/uL (0.0-0.2) Sodium Level 140 mmol/L (136-145) Potassium Level 4.1 mmol/L (3.5-5.1) Chloride Level 103 mmol/L (98-107) Carbon Dioxide Level 29 mmol/L (21-32) Anion Gap 8 (6-14) Blood Urea Nitrogen 27 mg/dL (8-26) H Creatinine 1.5 mg/dL (0.7-1.3) H Estimated GFR (Cockcroft-Gault) 45.9 BUN/Creatinine Ratio 18 (6-20) Glucose Level 106 mg/dL (70-99) H Calcium Level 8.7 mg/dL (8.5-10.1) Total Bilirubin 0.3 mg/dL (0.2-1.0) Aspartate Amino Transferase (AST) 23 U/L (15-37) Alanine Aminotransferase (ALT) 23 U/L (16-63) Alkaline Phosphatase 56 U/L (46-116) Total Protein 6.5 g/dL (6.4-8.2) Albumin 3.1 g/dL (3.4-5.0) L Albumin/Globulin Ratio 0.9 (1.0-1.7) L Current Medications: Meds: Current Medications Medications (Trade) Dose Ordered Sig/Joe Route PRN Reason Start Time Stop Time Status Last Admin Dose Admin Clonazepam (KlonoPIN) 0.25 mg BID PO 01/22/19 21:00 01/22/19 20:25 I have reviewed the current psychotropics carefully including drug interactions. Risk benefit ratio favors no change other than as noted in my dictated progress note. Diagnosis: Problems: (1) Anxiety disorder (2) Dementia, vascular, with delusions (3) Dementia, vascular, with depression (4) Dementia in Alzheimer's disease with depression (5) Dementia in Alzheimer's disease with delusions (6) Impulse control disorder HANNAH WARD MD Jan 22, 2019 21:47
[2019-01-23] MEDS: LORazepam 0.5 MG TABLET PO PRN ×2 (04:54→21:45)
[2019-01-23 06:02] VITALS: BP 143/75
[2019-01-23] MEDS: CALCIUM CARB/VIT D3 500/200 TABLET PO SCH (08:39)
[2019-01-23] MEDS: MULTIVITAMIN with MINERAL TABLET. PO SCH (08:39)
[2019-01-23] MEDS: OMEGA-3 FATTY ACIDS/FISH OIL 1,000 MG CAPSULE. PO SCH (08:39)
[2019-01-23] MEDS: APIXABAN 5 MG TABLET. PO SCH ×2 (08:39→20:30)
[2019-01-23] MEDS: VITAMIN B COMPLEX CAPSULE. PO SCH (08:39)
[2019-01-23] MEDS: FERROUS SULFATE 325 MG TABLET. PO SCH (08:39)
[2019-01-23] MEDS: PROPRANOLOL 10 MG TABLET. PO SCH ×2 (08:40→20:30)
[2019-01-23] MEDS: clonazePAM 0.5 MG TABLET PO SCH ×2 (08:42→20:30)
--- NOTE | 2019-01-23 12:53 | PN ---
DATE: 01/22/2019 This late entry, 01/22/2019, covers elements not covered in my initial note. SUBJECTIVE: I met with the patient evening of 01/22/2019 and staffed at a treatment team meeting with the entire team in the morning and the patient's , David, attended this lengthy conference. The patient slept 5 hours previous night. Appetite 75-100%, calm, compliant. He has been singing songs and activity therapy joining in less paranoid. indicated that some days he appears foggy, other days much better, was psychotic, believing his was in the dryer and bad things were going to happen, complaining of swelling of his hand. He has had some questionable decubitus ulcers. We will defer to Dr. Lawrence per nursing staff. REVIEW OF SYSTEMS: Ambulation impaired. No CV, , pulmonary, eye, ENT system symptoms on review. Reliability poor. MENTAL STATUS EXAMINATION: Oriented to himself and situation. Speech is coherent, has some latency, at times pressured. Abstraction fair, computation impaired, language function intact, attention span short. Mood and affect somewhat withdrawn at times, labile. LABORATORY DATA: Reviewed. IMPRESSION: Unchanged from initial note. PLAN: No change from initial note. HANNAH WARD MD DR: CARRIE/dariana JOB#: [id number] / [id number]
[2019-01-23 16:22] VITALS: BP 146/74
--- NOTE | 2019-01-23 20:10 | PN ---
DATE: 01/21/2019 PSYCHIATRIC PROGRESS NOTE This late entry 01/21/2019 covers elements not covered in my initial note. SUBJECTIVE: I met with the patient in the evening. The patient slept 6-3/4 hours previous night per JONATHAN Rojas. Previous night, he was quite psychotic, felt his was in the dryer and nursing staff had to take him to the dryer to make sure she was not there, nothing could convince him otherwise. During the day on 01/21/2019, he is alert, oriented x 3. At noon time, he was walking naked in his room, stated he was making love to his , quite delusional, psychotic, little more oriented at other times. REVIEW OF SYSTEMS: Positive for some tiredness. No CV, , pulmonary, eye system symptoms on review. MENTAL STATUS EXAM: Oriented to himself and situation. Speech has some latency, less pressured. Abstraction fair, computation impaired, language function intact. Mood and affect, lability persists, but improved. LABORATORY DATA: Reviewed. Valproic acid level is 54, therapeutic. IMPRESSION: Unchanged from initial note. PLAN: No change from initial note, but increase Risperdal from 0.75 mg at bedtime to 1 mg at bedtime. Rest unchanged. MAN Byron WARD MD DR: CARRIE/dariana JOB#: [id number] / [id number]
[2019-01-23] MEDS: DONEPEZIL HCL 10 MG TABLET PO SCH (20:28)
[2019-01-23] MEDS: BENZTROPINE MESYLATE 0.5 MG TABLET PO SCH (20:28)
[2019-01-23] MEDS: MELATONIN 3 MG TABLET PO SCH (20:28)
[2019-01-23] MEDS: traZODone 50 MG TABLET. PO SCH (20:28)
[2019-01-23] MEDS: DIVALPROEX ER 500 MG TAB.ER.24H PO SCH (20:30)
[2019-01-23] MEDS: NIACIN ER 500 MG TABLET.ER PO SCH (20:30)
[2019-01-23] MEDS: PRIMIDONE 50 MG TABLET PO SCH (20:30)
[2019-01-23] MEDS: risperiDONE 1 MG TABLET. PO SCH (20:30)
[2019-01-23] MEDS: SIMVASTATIN 20 MG TABLET PO SCH (20:30)
--- NOTE | 2019-01-23 21:36 | PDOC ---
Exam Note: Jose Note: Please also refer to the separate dictated note~for this date of service dictated separately.~Patient seen individually. Discussed the patient with Nursing staff reviewed the chart.~Reviewed interim history and current functioning. Reviewed vital signs,~Labs/ Radiology~and current medications noted below. Continue current treatment with the changes noted in the dictated addendum note Assessment: Vital Signs/I&O: Vital Signs Date Time Temp Pulse Resp B/P (MAP) Pulse Ox O2 Delivery O2 Flow Rate FiO2 01/23/19 20:30 74 109/73 01/23/19 16:22 97.7 18 99 01/19/19 05:59 Room Air I & O 01/22/19 01/22/19 01/23/19 15:00 23:00 07:00 Intake Total 960 ml 360 ml 120 ml Balance 960 ml 360 ml 120 ml Current Medications: I have reviewed the current psychotropics carefully including drug interactions. Risk benefit ratio favors no change other than as noted in my dictated progress note. Diagnosis: Problems: (1) Anxiety disorder (2) Dementia, vascular, with delusions (3) Dementia, vascular, with depression (4) Dementia in Alzheimer's disease with depression (5) Dementia in Alzheimer's disease with delusions (6) Impulse control disorder HANNAH WARD MD Jan 23, 2019 21:36
[2019-01-24 05:48] VITALS: BP 128/86
[2019-01-24] MEDS: VITAMIN B COMPLEX CAPSULE. PO SCH (08:17)
[2019-01-24] MEDS: CALCIUM CARB/VIT D3 500/200 TABLET PO SCH (08:17)
[2019-01-24] MEDS: APIXABAN 5 MG TABLET. PO SCH ×2 (08:18→19:54)
[2019-01-24] MEDS: PROPRANOLOL 10 MG TABLET. PO SCH ×2 (08:18→19:54)
[2019-01-24] MEDS: FERROUS SULFATE 325 MG TABLET. PO SCH (08:18)
[2019-01-24] MEDS: OMEGA-3 FATTY ACIDS/FISH OIL 1,000 MG CAPSULE. PO SCH (08:18)
[2019-01-24] MEDS: MULTIVITAMIN with MINERAL TABLET. PO SCH (08:18)
[2019-01-24] MEDS: clonazePAM 0.5 MG TABLET PO SCH ×2 (08:20→19:56)
[2019-01-24 15:44] VITALS: BP 135/77
[2019-01-24] MEDS: DONEPEZIL HCL 10 MG TABLET PO SCH (19:53)
[2019-01-24] MEDS: SIMVASTATIN 20 MG TABLET PO SCH (19:53)
[2019-01-24] MEDS: NIACIN ER 500 MG TABLET.ER PO SCH (19:53)
[2019-01-24] MEDS: MELATONIN 3 MG TABLET PO SCH (19:54)
[2019-01-24] MEDS: traZODone 50 MG TABLET. PO SCH (19:54)
[2019-01-24] MEDS: PRIMIDONE 50 MG TABLET PO SCH (19:54)
[2019-01-24] MEDS: risperiDONE 1 MG TABLET. PO SCH (19:54)
[2019-01-24] MEDS: DIVALPROEX ER 500 MG TAB.ER.24H PO SCH (19:54)
[2019-01-24] MEDS: BENZTROPINE MESYLATE 0.5 MG TABLET PO SCH (19:54)
--- NOTE | 2019-01-24 20:16 | PN ---
DATE: 01/23/2019 PSYCHIATRIC PROGRESS NOTE This late entry of 01/23/2019 covers elements not covered in my initial note. SUBJECTIVE: I met with the patient in the evening of 01/23/2019. Per JONATHAN Vogel, the patient slept 6-1/4 hours previous night. He is alert and oriented. Family visited him and he becomes tearful, anxious, depressed after the family leaves. No PRNs have been given. REVIEW OF SYSTEMS: Positive for the tremors. No CV, , pulmonary, eye system symptoms on review. MENTAL STATUS EXAM: Oriented to himself and situation. Speech is typical somewhat hesitant, consequent to his Parkinson's, but understandable. Abstraction fair, computation impaired, language function intact, attention span short. Mood and affect remain somewhat depressed, withdrawn, but psychotic symptoms are much improved. Attention span is short. IMPRESSION: Unchanged from initial note. PLAN: No change from initial note. MAN Byron WARD MD DR: CARRIE/dariana JOB#: [id number] / [id number]
--- NOTE | 2019-01-24 21:53 | PDOC ---
Exam Note: Jose Note: Please also refer to the separate dictated note~for this date of service dictated separately.~Patient seen individually. Discussed the patient with Nursing staff reviewed the chart.~Reviewed interim history and current functioning. Reviewed vital signs,~Labs/ Radiology~and current medications noted below. Continue current treatment with the changes noted in the dictated addendum note Assessment: Vital Signs/I&O: Vital Signs Date Time Temp Pulse Resp B/P (MAP) Pulse Ox O2 Delivery O2 Flow Rate FiO2 01/24/19 19:54 83 135/77 01/24/19 15:44 98.4 16 98 Room Air I & O 01/23/19 01/23/19 01/24/19 15:00 23:00 07:00 Intake Total 600 ml 600 ml Balance 600 ml 600 ml Current Medications: I have reviewed the current psychotropics carefully including drug interactions. Risk benefit ratio favors no change other than as noted in my dictated progress note. Diagnosis: Problems: (1) Anxiety disorder (2) Dementia, vascular, with delusions (3) Dementia, vascular, with depression (4) Dementia in Alzheimer's disease with depression (5) Dementia in Alzheimer's disease with delusions (6) Impulse control disorder HANNAH WARD MD Jan 24, 2019 21:53
[2019-01-25] MEDS: LORazepam 0.5 MG TABLET PO PRN (02:06)
[2019-01-25 06:22] VITALS: BP 174/77
[2019-01-25] MEDS: CALCIUM CARB/VIT D3 500/200 TABLET PO SCH (08:15)
[2019-01-25] MEDS: VITAMIN B COMPLEX CAPSULE. PO SCH (08:15)
[2019-01-25] MEDS: APIXABAN 5 MG TABLET. PO SCH ×2 (08:16→19:44)
[2019-01-25] MEDS: PROPRANOLOL 10 MG TABLET. PO SCH ×2 (08:16→19:45)
[2019-01-25] MEDS: OMEGA-3 FATTY ACIDS/FISH OIL 1,000 MG CAPSULE. PO SCH (08:16)
[2019-01-25] MEDS: FERROUS SULFATE 325 MG TABLET. PO SCH (08:16)
[2019-01-25] MEDS: MULTIVITAMIN with MINERAL TABLET. PO SCH (08:17)
[2019-01-25] MEDS: clonazePAM 0.5 MG TABLET PO SCH ×2 (08:18→19:45)
[2019-01-25 16:20] VITALS: BP 129/75
[2019-01-25] MEDS: MELATONIN 3 MG TABLET PO SCH (19:44)
[2019-01-25] MEDS: NIACIN ER 500 MG TABLET.ER PO SCH (19:44)
[2019-01-25] MEDS: DONEPEZIL HCL 10 MG TABLET PO SCH (19:44)
[2019-01-25] MEDS: BENZTROPINE MESYLATE 0.5 MG TABLET PO SCH (19:44)
[2019-01-25] MEDS: risperiDONE 1 MG TABLET. PO SCH (19:44)
[2019-01-25] MEDS: SIMVASTATIN 20 MG TABLET PO SCH (19:44)
[2019-01-25] MEDS: PRIMIDONE 50 MG TABLET PO SCH (19:44)
[2019-01-25] MEDS: traZODone 50 MG TABLET. PO SCH (19:44)
[2019-01-25] MEDS: DIVALPROEX ER 500 MG TAB.ER.24H PO SCH (19:44)
--- NOTE | 2019-01-26 04:31 | PN ---
DATE: 01/25/2019 SUBJECTIVE: The patient was seen today, met with the staff, chart reviewed and also covering for Dr. Vazquez. Staff reports the patient is still paranoid, especially towards his , accusing her of having an affair with others. The patient also sexually inappropriate at times. He was found naked in his room a couple of times. The patient constantly talking about his , preoccupied and also very paranoid towards her. OBSERVATION: VITAL SIGNS: Temperature 97.6, blood pressure 174/77, pulse 83, respirations 20, O2 sat 97%. The patient slept about 7 hours last night. GENERAL: The patient's appetite is fair. The patient is able to orient himself to surroundings. NEUROLOGIC: The patient has difficulty with his speech and also involuntary movements, emotional lability and also problems with his attention span and concentration and also he appears depressed. MEDICATIONS: Currently on Klonopin 0.25 mg b.i.d., Risperdal 1 mg at night, Cogentin 0.5 mg at night, trazodone 50 mg at night, propranolol 20 mg b.i.d., primidone 50 mg at night, Depakote 500 mg at night, melatonin 3 mg at night, Aricept 10 mg at night, olanzapine 2.5 mg q. 2 hours p.r.n., also trazodone 25 mg at night p.r.n. for sleep. LABORATORY DATA: The patient's lab reviewed. BUN 27, creatinine 1.5. The patient's valproic acid level was 54. ASSESSMENT: Bipolar disorder, mixed with psychotic features, major neurocognitive disorder, most likely vascular with delusions and behavioral disturbances. PLAN: Continue with the treatment. ELVIN HERNANDEZ MD DR: SURENDRA/dariana JOB#: [id number] / [id number]
[2019-01-26 05:33] VITALS: BP 149/68
[2019-01-26] MEDS: VITAMIN B COMPLEX CAPSULE. PO SCH (07:31)
[2019-01-26] MEDS: MULTIVITAMIN with MINERAL TABLET. PO SCH (07:31)
[2019-01-26] MEDS: OMEGA-3 FATTY ACIDS/FISH OIL 1,000 MG CAPSULE. PO SCH (07:31)
[2019-01-26] MEDS: PROPRANOLOL 10 MG TABLET. PO SCH ×2 (07:32→20:45)
[2019-01-26] MEDS: CALCIUM CARB/VIT D3 500/200 TABLET PO SCH (07:32)
[2019-01-26] MEDS: APIXABAN 5 MG TABLET. PO SCH ×2 (07:32→20:45)
[2019-01-26] MEDS: FERROUS SULFATE 325 MG TABLET. PO SCH (07:32)
[2019-01-26] MEDS: clonazePAM 0.5 MG TABLET PO SCH ×2 (07:34→20:46)
[2019-01-26 16:08] VITALS: BP 132/68
[2019-01-26] MEDS: PRIMIDONE 50 MG TABLET PO SCH (20:45)
[2019-01-26] MEDS: DONEPEZIL HCL 10 MG TABLET PO SCH (20:45)
[2019-01-26] MEDS: risperiDONE 1 MG TABLET. PO SCH (20:45)
[2019-01-26] MEDS: traZODone 50 MG TABLET. PO SCH (20:45)
[2019-01-26] MEDS: DIVALPROEX ER 500 MG TAB.ER.24H PO SCH (20:45)
[2019-01-26] MEDS: NIACIN ER 500 MG TABLET.ER PO SCH (20:45)
[2019-01-26] MEDS: SIMVASTATIN 20 MG TABLET PO SCH (20:45)
[2019-01-26] MEDS: MELATONIN 3 MG TABLET PO SCH (20:45)
[2019-01-26] MEDS: BENZTROPINE MESYLATE 0.5 MG TABLET PO SCH (20:46)
[2019-01-27 05:12] VITALS: BP 119/64
--- NOTE | 2019-01-27 07:00 | PN ---
DATE: 01/26/2019 SUBJECTIVE: The patient was seen today, met with the staff, chart reviewed. Staff reports no major problems today except for increased anxiety. The patient is participating in all the activities. The patient's family also visited him at lunchtime. Staff reports no major behaviors with regard to his sexual behaviors for which she presented at the time of admission. OBSERVATION: VITAL SIGNS: Temperature 98.2, blood pressure 149/68, pulse 79, respiration 18, O2 sat 93%. Slept about 8 hours last night. CURRENT MEDICATIONS: The patient's current medications include Klonopin 0.25 mg twice a day, Risperdal 1 mg at night, Cogentin 0.5 mg at night, trazodone 50 mg at night, propranolol 20 mg b.i.d., primidone 50 mg at night, Depakote 500 mg at night, melatonin 3 mg at night and Aricept 10 mg at night. The patient is also on olanzapine and trazodone as p.r.n. ASSESSMENT: 1. Bipolar disorder, mixed, with psychotic features. 2. Major neurocognitive disorder, most likely vascular with delusions and behavioral disturbances. PLAN: To continue with the treatment. ELVIN HERNANDEZ MD DR: SURENDRA/dariana JOB#: [id number] / [id number]
[2019-01-27] MEDS: MULTIVITAMIN with MINERAL TABLET. PO SCH (07:43)
[2019-01-27] MEDS: PROPRANOLOL 10 MG TABLET. PO SCH ×2 (07:43→20:50)
[2019-01-27] MEDS: APIXABAN 5 MG TABLET. PO SCH ×2 (07:44→20:50)
[2019-01-27] MEDS: FERROUS SULFATE 325 MG TABLET. PO SCH (07:44)
[2019-01-27] MEDS: CALCIUM CARB/VIT D3 500/200 TABLET PO SCH (07:44)
[2019-01-27] MEDS: VITAMIN B COMPLEX CAPSULE. PO SCH (07:44)
[2019-01-27] MEDS: OMEGA-3 FATTY ACIDS/FISH OIL 1,000 MG CAPSULE. PO SCH (07:44)
[2019-01-27] MEDS: clonazePAM 0.5 MG TABLET PO SCH (07:46)
[2019-01-27 16:22] VITALS: BP 128/76
[2019-01-27] MEDS: DONEPEZIL HCL 10 MG TABLET PO SCH (20:49)
[2019-01-27] MEDS: BENZTROPINE MESYLATE 0.5 MG TABLET PO SCH (20:49)
[2019-01-27] MEDS: DIVALPROEX ER 500 MG TAB.ER.24H PO SCH (20:50)
[2019-01-27] MEDS: risperiDONE 1 MG TABLET. PO SCH (20:50)
[2019-01-27] MEDS: NIACIN ER 500 MG TABLET.ER PO SCH (20:50)
[2019-01-27] MEDS: MELATONIN 3 MG TABLET PO SCH (20:50)
[2019-01-27] MEDS: SIMVASTATIN 20 MG TABLET PO SCH (20:50)
[2019-01-27] MEDS: PRIMIDONE 50 MG TABLET PO SCH (20:50)
[2019-01-27] MEDS: traZODone 50 MG TABLET. PO SCH (20:52)
--- NOTE | 2019-01-27 21:49 | PDOC ---
Exam Note: Jose Note: Please also refer to the separate dictated note~for this date of service dictated separately.~Patient seen individually. Discussed the patient with Nursing staff reviewed the chart.~Reviewed interim history and current functioning. Reviewed vital signs,~Labs/ Radiology~and current medications noted below. Continue current treatment with the changes noted in the dictated addendum note Assessment: Vital Signs/I&O: Vital Signs Date Time Temp Pulse Resp B/P (MAP) Pulse Ox O2 Delivery O2 Flow Rate FiO2 01/27/19 20:50 72 137/72 01/27/19 16:22 98.2 16 95 01/27/19 05:12 Room Air I & O 01/26/19 01/26/19 01/27/19 15:00 23:00 07:00 Intake Total 840 ml 720 ml Balance 840 ml 720 ml Current Medications: I have reviewed the current psychotropics carefully including drug interactions. Risk benefit ratio favors no change other than as noted in my dictated progress note. Diagnosis: Problems: (1) Anxiety disorder (2) Dementia, vascular, with delusions (3) Dementia, vascular, with depression (4) Dementia in Alzheimer's disease with depression (5) Dementia in Alzheimer's disease with delusions (6) Impulse control disorder HANNAH WRAD MD Jan 27, 2019 21:49
--- NOTE | 2019-01-28 01:54 | PN ---
DATE: 01/24/2019 PSYCHIATRIC PROGRESS NOTE This late entry, 01/24, covers elements not covered in my initial note. SUBJECTIVE: I met with the patient in the morning. Per nursing report from Gini RN, patient slept 7 hours previous night. He did well at night and during the day on 01/24. At one point, he seemed to be hearing gunshots that he talked about, does have tremors. We will defer management to Dr. Erwin, Neurology. REVIEW OF SYSTEMS: Positive for his tremors. He does have a deep brain stimulator in place. No CV, , pulmonary, eye system symptoms on review. MENTAL STATUS EXAMINATION: Oriented to himself and situation. Speech has some rapidity, difficult to understand again due to his movement disorder. Abstraction fair, computation impaired, language function intact, attention span short. Mood and affect less anxious and labile. LABORATORY DATA: Reviewed. IMPRESSION: Unchanged from initial note. PLAN: No change from initial note. MAN Byron WARD MD DR: CARRIE/dariana JOB#: [id number] / [id number]
[2019-01-28 05:43] VITALS: BP 128/65
[2019-01-28] MEDS: VITAMIN B COMPLEX CAPSULE. PO SCH (09:06)
[2019-01-28] MEDS: CALCIUM CARB/VIT D3 500/200 TABLET PO SCH (09:06)
[2019-01-28] MEDS: OMEGA-3 FATTY ACIDS/FISH OIL 1,000 MG CAPSULE. PO SCH (09:06)
[2019-01-28] MEDS: APIXABAN 5 MG TABLET. PO SCH ×2 (09:07→21:06)
[2019-01-28] MEDS: FERROUS SULFATE 325 MG TABLET. PO SCH (09:07)
[2019-01-28] MEDS: MULTIVITAMIN with MINERAL TABLET. PO SCH (09:07)
[2019-01-28] MEDS: PROPRANOLOL 10 MG TABLET. PO SCH ×2 (09:07→21:05)
[2019-01-28] MEDS: clonazePAM 0.5 MG TABLET PO SCH (09:09)
[2019-01-28 16:19] VITALS: BP 126/67
[2019-01-28] MEDS: PRIMIDONE 50 MG TABLET PO SCH (21:05)
[2019-01-28] MEDS: NIACIN ER 500 MG TABLET.ER PO SCH (21:05)
[2019-01-28] MEDS: SIMVASTATIN 20 MG TABLET PO SCH (21:05)
[2019-01-28] MEDS: MELATONIN 3 MG TABLET PO SCH (21:06)
[2019-01-28] MEDS: traZODone 50 MG TABLET. PO SCH (21:06)
[2019-01-28] MEDS: risperiDONE 1 MG TABLET. PO SCH (21:06)
[2019-01-28] MEDS: BENZTROPINE MESYLATE 0.5 MG TABLET PO SCH (21:06)
[2019-01-28] MEDS: DONEPEZIL HCL 10 MG TABLET PO SCH (21:06)
[2019-01-28] MEDS: DIVALPROEX ER 500 MG TAB.ER.24H PO SCH (21:06)
--- NOTE | 2019-01-28 21:54 | PDOC ---
Exam Note: Jose Note: Please also refer to the separate dictated note~for this date of service dictated separately.~Patient seen individually. Discussed the patient with Nursing staff reviewed the chart.~Reviewed interim history and current functioning. Reviewed vital signs,~Labs/ Radiology~and current medications noted below. Continue current treatment with the changes noted in the dictated addendum note Assessment: Vital Signs/I&O: Vital Signs Date Time Temp Pulse Resp B/P (MAP) Pulse Ox O2 Delivery O2 Flow Rate FiO2 01/28/19 21:05 83 147/82 01/28/19 16:19 98.1 18 96 01/28/19 05:43 Room Air I & O 01/27/19 01/27/19 01/28/19 15:00 23:00 07:00 Intake Total 960 ml 600 ml Balance 960 ml 600 ml Current Medications: Meds: Current Medications Medications (Trade) Dose Ordered Sig/Joe Route PRN Reason Start Time Stop Time Status Last Admin Dose Admin Clonazepam (KlonoPIN) 0.25 mg DAILY PO 01/28/19 09:00 01/28/19 09:09 I have reviewed the current psychotropics carefully including drug interactions. Risk benefit ratio favors no change other than as noted in my dictated progress note. Diagnosis: Problems: (1) Anxiety disorder (2) Dementia, vascular, with delusions (3) Dementia, vascular, with depression (4) Dementia in Alzheimer's disease with depression (5) Dementia in Alzheimer's disease with delusions (6) Impulse control disorder HANNAH WARD MD Jan 28, 2019 21:54
--- NOTE | 2019-01-29 04:17 | PN ---
DATE: 01/27/2019 PSYCHIATRIC PROGRESS NOTE This late entry 01/27/2019 covers the elements not covered in my initial note. SUBJECTIVE: I met with the patient in the evening of 01/27/2019 and reviewed information from Dr. Sky, who covered for me for the prior 2 days. The patient slept 5-1/4 hours previous night. He is overall doing better, but he still has significant tremors and deferred this to Dr. Erwin. He does have a deep brain stimulator in place for this. He has not been delusional or agitated. REVIEW OF SYSTEMS: Positive for the tremors. No CV, , pulmonary, eye, ENT system symptoms on review. MENTAL STATUS EXAM: The patient is oriented to himself and situation. Speech is impacted for neurologically by the tremors. Abstraction fair, computation impaired, language function intact, attention span short. Mood and affect still somewhat anxious, but not clearly psychotic. No suicidal or homicidal ideation. He has not talked about hearing gunshot wounds and other psychotic symptoms like he had a few days back. LABORATORY DATA: Reviewed. IMPRESSION: Psychotic disorder, unspecified; bipolar 1 disorder, mixed with psychotic features, mild cognitive impairment. Rest unchanged. PLAN: The patient is on Klonopin 0.25 mg b.i.d. We will try and taper the benzodiazepine, reduce it to 0.25 mg once a day. Continue rest of the psychotropics unchanged, Risperdal 0.75 mg at bedtime, Depakote ER 500 mg at bedtime with a therapeutic blood level at 54. MAN Byron WARD MD DR: CARRIE/dariana JOB#: [id number] / [id number]
[2019-01-29 06:26] VITALS: BP 134/62
[2019-01-29 07:48] LABS: BASO # 0.1 x10^3/uL (0.0-0.2); BASO % 1 % (0-3); EOS # 0.1 x10^3/uL (0.0-0.7); EOS % 2 % (0-3); HEMOGLOBIN 12.6 g/dL (13.0-17.5); LYMPH # 1.5 x10^3/uL (1.0-4.8); LYMPH % 15 % (24-48); MEAN CORPUSCULAR HEMOGLOBIN 32 pg (25-35); MEAN CORPUSCULAR HGB CONC 33 g/dL (31-37); MEAN CORPUSCULAR VOLUME 96 fL (79-100); MONO # 1.2 x10^3/uL (0.0-1.1); MONO % 12 % (0-9); NEUT # 7.1 x10^3uL (1.8-7.7); NEUT % 71 % (31-73); PLATELET COUNT 219 x10^3/uL (140-400); RED BLOOD COUNT 3.95 x10^6/uL (4.30-5.70); RED CELL DISTRIBUTION WIDTH 14.2 % (11.5-14.5)
[2019-01-29 08:00] LABS: ALBUMIN 3.3 g/dL (3.4-5.0); ALBUMIN/GLOBULIN RATIO 0.9 (1.0-1.7); CALCIUM 8.9 mg/dL (8.5-10.1); CREATININE 1.5 mg/dL (0.7-1.3); GFR 45.7; POTASSIUM 4.6 mmol/L (3.5-5.1); TOTAL BILIRUBIN 0.5 mg/dL (0.2-1.0); TOTAL PROTEIN 6.8 g/dL (6.4-8.2)
[2019-01-29] MEDS: VITAMIN B COMPLEX CAPSULE. PO SCH (09:07)
[2019-01-29] MEDS: CALCIUM CARB/VIT D3 500/200 TABLET PO SCH (09:08)
[2019-01-29] MEDS: APIXABAN 5 MG TABLET. PO SCH ×2 (09:08→19:38)
[2019-01-29] MEDS: FERROUS SULFATE 325 MG TABLET. PO SCH (09:08)
[2019-01-29] MEDS: OMEGA-3 FATTY ACIDS/FISH OIL 1,000 MG CAPSULE. PO SCH (09:08)
[2019-01-29] MEDS: MULTIVITAMIN with MINERAL TABLET. PO SCH (09:08)
[2019-01-29] MEDS: PROPRANOLOL 10 MG TABLET. PO SCH ×2 (09:08→19:37)
[2019-01-29] MEDS: clonazePAM 0.5 MG TABLET PO SCH (09:09)
[2019-01-29 10:19] LABS: % BANDS 1 % (0-9); % EOS 1 % (0-5); % LYMPHS 9 % (24-48); % MONOS 11 % (0-10); % SEGS 78 % (35-66)
[2019-01-29 10:20] LABS: PLT ESTIMATE ADEQUATE (ADEQUATE)
[2019-01-29 17:30] VITALS: BP 124/73
[2019-01-29] MEDS: BENZTROPINE MESYLATE 0.5 MG TABLET PO SCH (19:37)
[2019-01-29] MEDS: SIMVASTATIN 20 MG TABLET PO SCH (19:37)
[2019-01-29] MEDS: traZODone 50 MG TABLET. PO SCH (19:38)
[2019-01-29] MEDS: MELATONIN 3 MG TABLET PO SCH (19:38)
[2019-01-29] MEDS: DONEPEZIL HCL 10 MG TABLET PO SCH (19:38)
[2019-01-29] MEDS: PRIMIDONE 50 MG TABLET PO SCH (19:38)
[2019-01-29] MEDS: DIVALPROEX ER 500 MG TAB.ER.24H PO SCH (19:38)
[2019-01-29] MEDS: risperiDONE 1 MG TABLET. PO SCH (19:39)
[2019-01-29] MEDS: NIACIN ER 500 MG TABLET.ER PO SCH (19:41)
--- NOTE | 2019-01-29 21:55 | PDOC ---
Exam Note: Jose Note: Please also refer to the separate dictated note~for this date of service dictated separately.~Patient seen individually. Discussed the patient with Nursing staff reviewed the chart.~Reviewed interim history and current functioning. Reviewed vital signs,~Labs/ Radiology~and current medications noted below. Continue current treatment with the changes noted in the dictated addendum note Assessment: Vital Signs/I&O: Vital Signs Date Time Temp Pulse Resp B/P (MAP) Pulse Ox O2 Delivery O2 Flow Rate FiO2 01/29/19 19:37 74 124/73 01/29/19 17:30 98.7 16 95 Room Air I & O 01/28/19 01/28/19 01/29/19 15:00 23:00 07:00 Intake Total 720 ml 600 ml Output Total 350 ml Balance 720 ml 600 ml -350 ml Labs: Laboratory Tests Test 01/29/19 07:29 White Blood Count 10.0 x10^3/uL (4.0-11.0) Red Blood Count 3.95 x10^6/uL (4.30-5.70) L Hemoglobin 12.6 g/dL (13.0-17.5) L Hematocrit 38.0 % (39.0-53.0) L Mean Corpuscular Volume 96 fL (79-100) Mean Corpuscular Hemoglobin 32 pg (25-35) Mean Corpuscular Hemoglobin Concent 33 g/dL (31-37) Red Cell Distribution Width 14.2 % (11.5-14.5) Platelet Count 219 x10^3/uL (140-400) Neutrophils (%) (Auto) 71 % (31-73) Lymphocytes (%) (Auto) 15 % (24-48) L Monocytes (%) (Auto) 12 % (0-9) H Eosinophils (%) (Auto) 2 % (0-3) Basophils (%) (Auto) 1 % (0-3) Neutrophils # (Auto) 7.1 x10^3uL (1.8-7.7) Lymphocytes # (Auto) 1.5 x10^3/uL (1.0-4.8) Monocytes # (Auto) 1.2 x10^3/uL (0.0-1.1) H Eosinophils # (Auto) 0.1 x10^3/uL (0.0-0.7) Basophils # (Auto) 0.1 x10^3/uL (0.0-0.2) Segmented Neutrophils % 78 % (35-66) H Band Neutrophils % 1 % (0-9) Lymphocytes % 9 % (24-48) L Monocytes % 11 % (0-10) H Eosinophils % 1 % (0-5) Platelet Estimate Adequate (ADEQUATE) Sodium Level 139 mmol/L (136-145) Potassium Level 4.6 mmol/L (3.5-5.1) Chloride Level 103 mmol/L (98-107) Carbon Dioxide Level 28 mmol/L (21-32) Anion Gap 8 (6-14) Blood Urea Nitrogen 30 mg/dL (8-26) H Creatinine 1.5 mg/dL (0.7-1.3) H Estimated GFR (Cockcroft-Gault) 45.7 BUN/Creatinine Ratio 20 (6-20) Glucose Level 95 mg/dL (70-99) Calcium Level 8.9 mg/dL (8.5-10.1) Total Bilirubin 0.5 mg/dL (0.2-1.0) Aspartate Amino Transferase (AST) 32 U/L (15-37) Alanine Aminotransferase (ALT) 25 U/L (16-63) Alkaline Phosphatase 58 U/L (46-116) Total Protein 6.8 g/dL (6.4-8.2) Albumin 3.3 g/dL (3.4-5.0) L Albumin/Globulin Ratio 0.9 (1.0-1.7) L Current Medications: I have reviewed the current psychotropics carefully including drug interactions. Risk benefit ratio favors no change other than as noted in my dictated progress note. Diagnosis: Problems: (1) Anxiety disorder (2) Dementia, vascular, with delusions (3) Dementia, vascular, with depression (4) Dementia in Alzheimer's disease with depression (5) Dementia in Alzheimer's disease with delusions (6) Impulse control disorder HANNAH WARD MD Jan 29, 2019 21:55
[2019-01-30 05:07] LABS: TOTAL SERUM CREATININE 1.4 mg/dL (0.76-1.27); TOTAL URINE CREATININE 84.7 mg/dL (Not Estab.); UR PROTEIN 5.5 mg/dL (Not Estab.)
[2019-01-30 06:31] VITALS: BP 147/80
[2019-01-30] MEDS: CALCIUM CARB/VIT D3 500/200 TABLET PO SCH (08:13)
[2019-01-30] MEDS: VITAMIN B COMPLEX CAPSULE. PO SCH (08:13)
[2019-01-30] MEDS: APIXABAN 5 MG TABLET. PO SCH ×2 (08:13→19:48)
[2019-01-30] MEDS: OMEGA-3 FATTY ACIDS/FISH OIL 1,000 MG CAPSULE. PO SCH (08:14)
[2019-01-30] MEDS: PROPRANOLOL 10 MG TABLET. PO SCH ×2 (08:14→19:48)
[2019-01-30] MEDS: MULTIVITAMIN with MINERAL TABLET. PO SCH (08:14)
[2019-01-30] MEDS: FERROUS SULFATE 325 MG TABLET. PO SCH (08:14)
[2019-01-30] MEDS: clonazePAM 0.5 MG TABLET PO SCH (08:35)
[2019-01-30] MEDS: ASCORBIC ACID 500 MG TABLET PO SCH (08:35)
[2019-01-30 15:47] VITALS: BP 137/71
[2019-01-30] MEDS: DIVALPROEX ER 500 MG TAB.ER.24H PO SCH (19:46)
[2019-01-30] MEDS: risperiDONE 1 MG TABLET. PO SCH (19:48)
[2019-01-30] MEDS: BENZTROPINE MESYLATE 0.5 MG TABLET PO SCH (19:48)
[2019-01-30] MEDS: MELATONIN 3 MG TABLET PO SCH (19:48)
[2019-01-30] MEDS: NIACIN ER 500 MG TABLET.ER PO SCH (19:48)
[2019-01-30] MEDS: DONEPEZIL HCL 10 MG TABLET PO SCH (19:48)
[2019-01-30] MEDS: PRIMIDONE 50 MG TABLET PO SCH (19:48)
[2019-01-30] MEDS: traZODone 50 MG TABLET. PO SCH (19:48)
[2019-01-30] MEDS: SIMVASTATIN 20 MG TABLET PO SCH (19:48)
--- NOTE | 2019-01-30 21:49 | PDOC ---
Exam Note: Jose Note: Please also refer to the separate dictated note~for this date of service dictated separately.~Patient seen individually. Discussed the patient with Nursing staff reviewed the chart.~Reviewed interim history and current functioning. Reviewed vital signs,~Labs/ Radiology~and current medications noted below. Continue current treatment with the changes noted in the dictated addendum note Assessment: Vital Signs/I&O: Vital Signs Date Time Temp Pulse Resp B/P (MAP) Pulse Ox O2 Delivery O2 Flow Rate FiO2 01/30/19 19:48 77 137/71 01/30/19 15:47 98.0 18 96 Room Air I & O 01/29/19 01/29/19 01/30/19 15:00 23:00 07:00 Intake Total 720 ml 240 ml Balance 720 ml 240 ml Current Medications: Meds: Current Medications Medications (Trade) Dose Ordered Sig/Joe Route PRN Reason Start Time Stop Time Status Last Admin Dose Admin Ascorbic Acid (Vitamin C) 500 mg DAILY PO 01/30/19 09:00 01/30/19 08:35 I have reviewed the current psychotropics carefully including drug interactions. Risk benefit ratio favors no change other than as noted in my dictated progress note. Diagnosis: Problems: (1) Anxiety disorder (2) Dementia, vascular, with delusions (3) Dementia, vascular, with depression (4) Dementia in Alzheimer's disease with depression (5) Dementia in Alzheimer's disease with delusions (6) Impulse control disorder HANNAH WARD MD Jan 30, 2019 21:49
[2019-01-30] MEDS ORDERED: ASCO500T3 PO (22:30)
[2019-01-30] MEDS ORDERED: BENZ0.5T32 PO (22:31)
[2019-01-30] MEDS ORDERED: DIVA500T4 PO (22:32)
[2019-01-30] MEDS ORDERED: LORA-254 PO (22:32)
[2019-01-30] MEDS ORDERED: MAG30ORA2 PO (22:33)
[2019-01-30] MEDS ORDERED: MAGN2400 PO (22:34)
[2019-01-30] MEDS ORDERED: METH28OI2 TP (22:35)
[2019-01-30] MEDS ORDERED: OLAN5TAB5 PO (22:37)
[2019-01-30] MEDS ORDERED: RISP0.2519 PO (22:38)
[2019-01-30] MEDS ORDERED: PROP20TA PO (22:38)
[2019-01-30] MEDS ORDERED: PRIM50TA24 PO (22:38)
--- NOTE | 2019-01-31 01:23 | PN ---
DATE: 01/28/2019 PSYCHIATRIC PROGRESS NOTE This late entry, 01/28/2019, covers elements not covered in my initial note. SUBJECTIVE: I met with the patient evening of 01/28/2019. According to JONATHAN Rojas, the patient slept 6 hours previous night. He has been less paranoid, delusional, compliant, was somewhat anxious in the morning, spent time in bed. At one point, he was somewhat paranoid, someone was lying in his bed and he felt it was a man. He was pacing, checking doors, but compliant with medications. REVIEW OF SYSTEMS: Positive for the tremors. Defer to Dr. Erwin, Neurology. Oriented to himself and situation. Speech has some latency, difficult to understand due to his tremors. No CV, , pulmonary, eye system symptoms on review. MENTAL STATUS EXAM: Oriented as above. Abstraction fair, computation impaired, language function intact, attention span short. Mood and affect less anxious and labile. LABORATORY DATA: Reviewed. IMPRESSION: Unchanged from initial note. PLAN: No change from initial note. MAN Byron WARD MD DR: CARRIE/dariana JOB#: [id number] / [id number]
--- NOTE | 2019-01-31 01:43 | PN ---
DATE: 01/29/2019 PSYCHIATRIC PROGRESS NOTE This late entry, 01/29/2019, covers elements not covered in my initial note. SUBJECTIVE: I met with the patient evening of 01/29/2019 and staffed at a treatment team meeting with the entire team. Appetite 75-100%, slept 6-1/2 hours. The patient's , Cara, attended the treatment team meeting to review his progress. He continues to have tremors. He has a sore on the bottom. We will defer to Dr. Lawrence and wound consult. A 24-hour urine for proteins is in collection. He is still awaiting records from [facility] neuropsychological testing and CT head. We discussed outpatient followup with a psychiatrist in [place] and options for this. REVIEW OF SYSTEMS: Positive for the tremors, difficulty with the speech. No CV, , pulmonary, eye system symptoms on review. MENTAL STATUS EXAM: Reasonably oriented. Speech is difficult to understand due to tremors. Abstraction fair, computation impaired, language function intact, attention span short. Mood and affect, lability is improved. LABORATORY DATA: Reviewed. IMPRESSION: Unchanged from initial note. PLAN: No change from initial note. MAN Byron WARD MD DR: CARRIE/dariana JOB#: [id number] / [id number]
[2019-01-31 06:33] VITALS: BP 179/71
[2019-01-31] MEDS: CALCIUM CARB/VIT D3 500/200 TABLET PO SCH (08:16)
[2019-01-31 08:17] VITALS: BP 179/71
[2019-01-31] MEDS: ASCORBIC ACID 500 MG TABLET PO SCH (08:17)
[2019-01-31] MEDS: OMEGA-3 FATTY ACIDS/FISH OIL 1,000 MG CAPSULE. PO SCH (08:17)
[2019-01-31] MEDS: APIXABAN 5 MG TABLET. PO SCH (08:17)
[2019-01-31] MEDS: PROPRANOLOL 10 MG TABLET. PO SCH (08:17)
[2019-01-31] MEDS: VITAMIN B COMPLEX CAPSULE. PO SCH (08:17)
[2019-01-31] MEDS: MULTIVITAMIN with MINERAL TABLET. PO SCH (08:17)
[2019-01-31] MEDS: FERROUS SULFATE 325 MG TABLET. PO SCH (08:17)
[2019-01-31] MEDS: clonazePAM 0.5 MG TABLET PO SCH (08:44)
--- NOTE | 2019-01-31 17:43 | PN ---
DATE: 01/30/2019 PSYCHIATRIC PROGRESS NOTE This note covers elements not covered in my initial note 01/30/2019. SUBJECTIVE: I met with the patient in the evening. Per JONATHAN Cutler, the patient slept 6-3/4 hours previous night. He has done better during the day. He still has significant hand tremors and tremors in his voice, but I will defer this to Dr. Erwin, Neurology. Otherwise, from a psychiatric standpoint, the psychosis, agitation, bipolar, manic symptoms are all improved. REVIEW OF SYSTEMS: Positive for his tremors. No CV, , pulmonary, eye, ENT system symptoms on review. MENTAL STATUS EXAM: The patient is reasonably oriented. Speech is difficult to understand with the tremors. Abstraction fair, computation impaired, language function intact, attention span short. Mood and affect, lability is improved. LABORATORY DATA: Reviewed. IMPRESSION: Unchanged from initial note. PLAN: No change from initial note. HANNAH WARD MD DR: CARRIE/dariana JOB#: [id number] / [id number]
--- NOTE | 2019-02-01 00:50 | PDOC ---
Exam Note: Jose Note: Late entry for DOD 01/31/2019. Please also refer to the separate dictated note~for this date of service dictated separately.~Patient seen individually. Discussed the patient with Nursing staff reviewed the chart.~Reviewed interim history and current functioning. Reviewed vital signs,~Labs/ Radiology~and current medications noted below. Continue current treatment with the changes noted in the dictated addendum note Assessment: Vital Signs/I&O: Vital Signs Date Time Temp Pulse Resp B/P (MAP) Pulse Ox O2 Delivery O2 Flow Rate FiO2 01/31/19 08:17 66 179/71 01/31/19 06:33 98.2 20 94 01/30/19 15:47 Room Air l I & O 01/31/19 01/31/19 02/01/19 14:59 22:59 06:59 Intake Total 360 ml Balance 360 ml Current Medications: I have reviewed the current psychotropics carefully including drug interactions. Risk benefit ratio favors no change other than as noted in my dictated progress note. Diagnosis: Problems: (1) Anxiety disorder (2) Dementia, vascular, with delusions (3) Dementia, vascular, with depression (4) Dementia in Alzheimer's disease with depression (5) Dementia in Alzheimer's disease with delusions (6) Impulse control disorder HANNAH WARD MD Feb 01, 2019 00:50
--- NOTE | 2019-02-02 06:52 | PN ---
DATE: 01/31/2019 PSYCHIATRIC PROGRESS NOTE This late entry 01/31/2019 covers elements not covered in my initial note. SUBJECTIVE: I met with the patient in the morning. The patient slept 6-1/2 hours previous night. Overall, the patient is doing better, though he has significant coarse tremors affecting his speech and upper extremities. He does have a deep brain stimulator to assist with this. REVIEW OF SYSTEMS: No CV, , pulmonary, eye, ENT system symptoms on review. MENTAL STATUS EXAM: Reasonably oriented. Speech is difficult to understand. Abstraction fair, computation impaired, language function intact, attention span short. Mood and affect less withdrawn. LABORATORY DATA: Reviewed. IMPRESSION: Unchanged from initial note. PLAN: No change from initial note. Dr. Poe will cover for me during my vacation over the next few days. MAN Byron WARD MD DR: CARRIE/dariana JOB#: [id number] / [id number]
--- NOTE | 2019-02-04 20:04 | DS ---
DATE OF DISCHARGE: 01/31/2019 DISCHARGE SUMMARY/PSYCHIATRIC PROGRESS NOTE This late entry of date of service 01/31 covers elements not covered in my initial note of 01/31. REASON FOR ADMISSION: Please refer to the admission history for details. Briefly, the patient is a 74-year-old male, referred from home where he lives with his after he attempted to put a pillow over his 's head. He was walking outside with no clothes on. According to his , reportedly, the patient was doing well until a short while before this admission and this was a fairly rapid change in his overall functioning. 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 He reportedly has a history of memory deficits, anxiety, dyslipidemia, hypertension, and status post transient ischemic attacks. Urinalysis at admission was unremarkable. The patient has had prior evaluations at the [facility] amongst others. SIGNIFICANT FINDINGS AND CLINICAL COURSE: Following admission, the patient was seen daily individually by myself from a psychiatric standpoint; medical followup with Dr. Lawrence/Dr. Acosta. The patient initially appeared extremely confused, psychotic, agitated, yelling, screaming, banging his head, and had to be in the quiet hallway. He was psychotic, appeared manic. Adjustments were made in his psychotropics and he seemed to respond to a combination of Risperdal 1 mg p.o. at bedtime, Depakote ER 500 mg at bedtime with a valproic acid level therapeutic at 54. He was also on Cogentin 0.5 mg at bedtime for his tremors and followed from a neurological standpoint by Dr. Erwin. Aricept was at 10 mg at bedtime, Klonopin was reduced down to 0.25 mg daily, trazodone 50 mg at bedtime plus p.r.n., Ativan p.r.n., and melatonin 3 mg at bedtime. From a psychiatric standpoint, the patient made a fairly significant improvement with his psychosis and agitation. He was much calmer. The tremors of his extremity, particularly upper extremity, and the voice tremors impacted his functioning but despite this, he was able to communicate much better; reasonably oriented; no suicidal or homicidal ideation prior to discharge, and in fact appeared quite stable from a psychiatric standpoint. My prior progress note dictated a couple of days back supplements this discharge summary and that was completed under dictation #[id number]. CONDITION AT DISCHARGE: Improved. FINAL DIAGNOSES: Bipolar disorder, mixed with psychotic features; psychotic disorder, unspecified; mild cognitive impairment; anxiety disorder, unspecified; rest of the diagnoses unchanged from admission. DISCHARGE MEDICATIONS: Please refer to the [facility]. DISCHARGE INSTRUCTIONS: The patient was discharged home with his with outpatient followup arranged, medical and psychiatric. I would suggest that once the patient has been stable for some time, attempt should be made to reduce the Risperdal gradually to see if the psychosis resurfaces especially since the current episode was fairly rapid in onset within a few days prior to admission. If that is successful, perhaps a taper of Depakote could be considered as well. We will leave all this to his outpatient psychiatrist and respiratory therapy aide. TIME SPENT: Time for discharge day management greater than 30 minutes. HANNAH WARD MD DR: CARRIE/dariana JOB#: [id number] / [id number]
== END 2019-01-31 10:30 | disposition home or self-care (01) | DRG 885 ==
LOC: GEROPSY 01:25
PROVIDERS: ADMIT Psychiatry & Neurology Psychiatry; ATTEND Psychiatry & Neurology Psychiatry
DX: F31.64 Bipolar disorder, current episode mixed, severe, with psychotic features (principal); I26.99 Other pulmonary embolism without acute cor pulmonale; F10.231 Alcohol dependence with withdrawal delirium; N18.9 Chronic kidney disease, unspecified; F63.9 Impulse disorder, unspecified; F02.80 Dementia in other diseases classified elsewhere, unspecified severity, without behavioral disturbance, psychotic disturbance, mood disturbance, and anxiety; G30.9 Alzheimer's disease, unspecified; F41.9 Anxiety disorder, unspecified; G25.0 Essential tremor; I12.9 Hypertensive chronic kidney disease with stage 1 through stage 4 chronic kidney disease, or unspecified chronic kidney disease; D64.9 Anemia, unspecified; E78.5 Hyperlipidemia, unspecified; F01.50 Vascular dementia, unspecified severity, without behavioral disturbance, psychotic disturbance, mood disturbance, and anxiety; G25.2 Other specified forms of tremor; M19.90 Unspecified osteoarthritis, unspecified site; Z86.73 Personal history of transient ischemic attack (TIA), and cerebral infarction without residual deficits; Z86.711 Personal history of pulmonary embolism
CPT/HCPCS: 36415; 80053; 80061; 80164; 81001; 82140; 82306; 82575; 83036; 83540; 83550; 83735; 84156; 84436; 84443; 84480; 85007; 85025; 86592; 90471; 90686; 93005; 97530